=== PATIENT | female | born 1940 | race Caucasian/White ===

== ENCOUNTER 2018-02-24 23:10 | Emergency (ER) | payer MEDICARE, BC ==
--- NOTE | 2018-02-24 23:19 | EDM.PDOC ---
ED HPI GENERAL MEDICAL PROBLEM - General Chief Complaint: Cardiovascular Problem Stated Complaint: BURNING PAIN Time Seen by Provider: 02/24/18 23:14 Source of Information: Reports: Patient History Limitations: Reports: No Limitations - History of Present Illness INITIAL COMMENTS - FREE TEXT/NARRATIVE: This patient is a 77 year old female that presents to the ER. Patient reports that at about noon today she had burning in her chest that radiated to her left shoulder, left jaw, and back left. Patient reports the pain was about a 5/10. She reports it went away, then at supper time about 6pm, she had the same burning pain and locations. She reports the pain was a 5/10. She reports then the pain worsened and was an 8/10. She reports at that time shortly of after supper she took a tums. She reports the pain decreased down to a 4/10. Currently , her pain in in the ER is a 4/10. The patient reports she has a history of a hernia and has several GI issues with reflux. She reports the burning sensation feels like reflux, but she has not had this bad before, and she has not had in the shoulder or jaw area. Patient deneis arteaga, dizziness, n, v, d, f, neck pain, neck stiffness, shortness of breath, abd pain, urinary/bowel changes, rashes. Onset: Today Onset Date: 02/24/18 Onset Time: 12:00 Duration: Hour(s): (11) Location: Reports: Face, Chest, Upper Extremity, Left Quality: Reports: Burning Severity: Moderate Improves with: Reports: None Worsens with: Reports: Other (drinking water made it worse) Associated Symptoms: Reports: Chest Pain. Denies: Confusion, Cough, cough w sputum, Diaphoresis, Fever/Chills, Headaches, Loss of Appetite, Malaise, Nausea/ Vomiting, Rash, Seizure, Shortness of Breath, Syncope, Weakness Back Pain Score (Numeric/FACES): 4 - Related Data Allergies Allergy/AdvReac Type Severity Reaction Status Date / Time ciprofloxacin [From Cipro] Allergy Nausea and Verified 02/24/18 23:19 Vomiting codeine Allergy Nausea and Verified 02/24/18 23:19 Vomiting Penicillins Allergy Cannot Verified 02/24/18 23:19 Remember procaine [From Novocain] Allergy Weakness Verified 02/24/18 23:19 Home Meds: Home Meds Bisoprolol Fumarate/HCTZ [Ziac 5-6.25 MG] 1 tab PO DAILY 02/24/18 [History] Cholecalciferol (Vitamin D3) [Vitamin D3] 10,000 unit PO BEDTIME 02/24/18 [ History] Docusate Sodium [Colace] 100 mg PO DAILY 02/24/18 [History] Losartan [Cozaar] 25 mg PO BEDTIME 02/24/18 [History] Lutein [Natural Lutein] 20 mg PO BEDTIME 02/24/18 [History] diphenhydrAMINE HCl [Sleep Aid] 25 mg PO BEDTIME 02/24/18 [History] ED ROS GENERAL - Review of Systems Review Of Systems: See Below Constitutional: Reports: No Symptoms HEENT: Reports: No Symptoms Respiratory: Reports: No Symptoms Cardiovascular: Reports: Chest Pain (with radiation to the left shoulder and left jaw. ) Endocrine: Reports: No Symptoms GI/Abdominal: Reports: No Symptoms : Reports: No Symptoms Musculoskeletal: Reports: No Symptoms Skin: Reports: No Symptoms Neurological: Reports: No Symptoms Psychiatric: Reports: No Symptoms Hematologic/Lymphatic: Reports: No Symptoms Immunologic: Reports: No Symptoms ED EXAM, GENERAL - Physical Exam Exam: See Below Exam Limited By: No Limitations General Appearance: Alert, WD/WN, No Apparent Distress Eye Exam: Bilateral Eye: Normal Inspection, PERRL Ears: Normal External Exam, Normal Canal, Hearing Grossly Normal, Normal TMs Ear Exam: Bilateral Ear: Auricle Normal, Canal Normal, TM normal Nose: Normal Inspection, Normal Mucosa, No Blood Throat/Mouth: Normal Inspection, Normal Lips, Normal Teeth, Normal Gums, Normal Oropharynx, Normal Voice, No Airway Compromise Head: Atraumatic, Normocephalic Neck: Normal Inspection, Supple, Non-Tender, Full Range of Motion Respiratory/Chest: No Respiratory Distress, Lungs Clear, Normal Breath Sounds, No Accessory Muscle Use, Chest Non-Tender Cardiovascular: Normal Peripheral Pulses, Regular Rate, Rhythm, No Edema, No Gallop, No JVD, No Murmur, No Rub Peripheral Pulses: 2+: Radial (L), Radial (R), Posterior Tibial (L), Posterior Tibial (R) GI/Abdominal: Normal Bowel Sounds, Soft, Non-Tender, No Organomegaly, No Distention, No Abnormal Bruit, No Mass, Pelvis Stable, Hernia (Female) Exam: Deferred Rectal (Female) Exam: Deferred Back Exam: Normal Inspection, Full Range of Motion. No: CVA Tenderness (L), CVA Tenderness (R), Decreased Range of Motion, Muscle Spasm, Paraspinal Tenderness, Vertebral Tenderness Extremities: Normal Inspection, Normal Range of Motion, Non-Tender, No Pedal Edema, Normal Capillary Refill Neurological: Alert, Oriented, Normal Cognition, Normal Gait, No Motor/Sensory Deficits Psychiatric: Normal Affect, Normal Mood Skin Exam: Warm, Dry, Intact, Normal Color, No Rash Lymphatic: No Adenopathy EKG INTERPRETATION EKG Date: 02/24/18 Time: 23:10 Rhythm: NSR Rate (Beats/Min): 82 [place]: Normal P-Wave: Present QRS: Normal ST-T: Normal QT: Normal Comparison: NA - No Prior EKG Course - Vital Signs Last Recorded V/S: Last Vital Signs Temp 97.9 F 02/24/18 23:12 Pulse 87 02/24/18 23:12 Resp 18 02/24/18 23:12 BP 159/89 H 02/24/18 23:12 Pulse Ox 94 L 02/24/18 23:12 - Orders/Labs/Meds Orders: Active Orders 24 hr Category Date Time Status Cardiac Monitoring [RC] . DIRECTED Care 02/24/18 23:15 Active EKG Documentation Completion [RC] STAT Care 02/24/18 23:14 Active Chest 2V [CR] Stat Exams 02/24/18 23:14 Taken Labs: Laboratory Tests 02/24/18 02/24/18 Range/Units 23:39 23:39 WBC 9.4 (5.0-10.0) 10^3/uL RBC 4.45 (4.00-5.50) 10^6/uL Hgb 13.0 (12.0-16.0) g/dL Hct 41.1 (37.0-47.0) % MCV 92.4 (82.0-94.0) fL MCH 29.2 (27.0-32.0) pg MCHC 31.6 L (33.0-38.0) g/dL RDW Coeff of Vangie 13.1 (11.0-15.0) % Plt Count 283 (150-400) 10^3/uL Neut % (Auto) 44.4 (35-85) % Lymph % (Auto) 47.0 (10-55) % Citrus % (Auto) 7.4 (0-16) % Eos % (Auto) 1.0 (0-5) % Baso % (Auto) 0.2 (0-3) % Neut # (Auto) 4.17 (1.80-7.00) 10^3/uL Lymph # (Auto) 4.40 (1.00-4.80) 10^3/uL Citrus # (Auto) 0.69 (0.00-0.80) 10^3/uL Eos # (Auto) 0.09 (0.00-0.45) 10^3/uL Baso # (Auto) 0.02 10^3/uL Sodium 143 (136-145) mEq/L Potassium 3.8 (3.5-5.0) mEq/L Chloride 103 (98-106) mEq/L Carbon Dioxide 33 H (21-32) mmol/L BUN 31 H (7-18) mg/dL Creatinine 1.0 (0.6-1.0) mg/dL Est Cr Clr Drug Dosing 41.05 mL/min Estimated GFR (MDRD) 53 L (>=60) mL/min Glucose 113 H (75-99) mg/dL Calcium 10.1 (8.4-10.1) mg/dL Total Bilirubin 0.4 (0.0-1.0) mg/dL AST 18 (15-37) U/L ALT 18 (12-78) U/L Alkaline Phosphatase 116 (46-116) U/L Creatine Kinase 24 (21-215) U/L Troponin I < 0.017 (0.00-0.06) ng/mL NT-Pro-B Natriuret Pep 102 (0-1000) pg/mL Total Protein 7.7 (6.4-8.2) g/dL Albumin 3.9 (3.4-5.0) g/dL Meds: Medications Discontinued Medications Generic Name Dose Route Start Last Admin Trade Name Freq PRN Reason Stop Dose Admin Al Hydroxide/Mg Hydroxide 30 0 ml 02/25/18 00:08 02/25/18 00:14 ml/ Lidocaine HCl 15 ml PO 02/25/18 00:09 30 ml ONETIME ONE Administration Famotidine 20 mg 02/24/18 23:54 Pepcid IVPUSH 02/24/18 23:55 ONETIME ONE - Radiology Interpretation Free Text/Narrative:: CXR: Large Hiatal hernia, seen on previous CXR. No infiltrates. No cardiomegaly. - Re-Assessments/Exams Free Text/Narrative Re-Assessment/Exam: 02/25/18 01:16 Patient reports the GI [place] completely resolved her burning pain. She reports she is ready to go home now. Departure - Departure Time of Disposition: 00:33 Disposition: Home, Self-Care 01 Condition: Fair Clinical Impression: Hernia, hiatal Gastroesophageal reflux disease Qualifiers: Esophagitis presence: without esophagitis Qualified Code(s): K21.9 - Gastro- esophageal reflux disease without esophagitis Instructions: Food Choices for Gastroesophageal Reflux Disease, Adult, Gastroesophageal Reflux Disease, Adult Referrals: Provider,Unknown [Primary Care Provider] - Forms: ED Department Discharge Additional Instructions: Followup with your primary care provider Return to the ER for worsening of condition or an emergent concerns Avoid acid, greasy, fatty, fast foods Pantoprazole 40mg 1 pill once a day #30 no refill - My Orders Last 24 Hours: My Active Orders 02/24/18 23:14 EKG Documentation Completion [RC] STAT Chest 2V [CR] Stat 02/24/18 23:15 Cardiac Monitoring [RC] . DIRECTED - Assessment/Plan Last 24 Hours: My Active Orders 02/24/18 23:14 EKG Documentation Completion [RC] STAT Chest 2V [CR] Stat 02/24/18 23:15 Cardiac Monitoring [RC] . DIRECTED Plan: PLEASE SEE RN NOTE FOR PFSH.
[2018-02-24 23:58] LABS: CHLORIDE,CL 103 mEq/L (98-106); SODIUM,NA 143 mEq/L (136-145)
[2018-02-25] MEDS: Alum Hydrox/Mag Hydrox/Simeth 30 ML, Lidocaine 2% 15 ML PO ONE ×2 (00:14)
[2018-02-25] MEDS: Famotidine 20 MG/2 ML SDV IVPUSH ONE (01:25)
== END 2018-02-25 01:16 | disposition home or self-care (01) ==
LOC: CC.ED 23:10
DX: K44.9 Diaphragmatic hernia without obstruction or gangrene (principal); K21.9 Gastro-esophageal reflux disease without esophagitis; Z88.1 Allergy status to other antibiotic agents; Z88.0 Allergy status to penicillin; Z79.899 Other long term (current) drug therapy
CPT/HCPCS: 36415; 71046; 80053; 82550; 83880; 84484; 85025; 99285; A9270; 99284

== ENCOUNTER 2018-12-11 14:09 | Emergency (ER) | payer MEDICARE, BC ==
[2018-12-11] MEDS ORDERED: Ibuprofen 200 MG Tab PO ONE (14:47)
[2018-12-11] MEDS ORDERED: Sodium Chloride 0.9% 1,000 ML IV SCH (15:00)
--- NOTE | 2018-12-11 15:05 | EDM.PDOC ---
ED HPI GENERAL MEDICAL PROBLEM - General Chief Complaint: Genitourinary Problem Stated Complaint: TEMP Time Seen by Provider: 12/11/18 14:45 Source of Information: Reports: Family History Limitations: Reports: Altered Mental Status - History of Present Illness INITIAL COMMENTS - FREE TEXT/NARRATIVE: and daughter brought pt in for elevated fever and decrease in response. Noted that temp was 103 at home. Tylenol was given at 0800 this AM. She began to get sick Sunday night into Sunday AM. Sunday they took her to the ER in [place] and was told she had a UTI and was given IV fluids and IV antibiotics. WAS sent home on antibiotics which she did get today and took her dose this AM> She became febrile up to 103 at home and less responsive so was brought into the ER. She was having some lower abdominal pain. No diarrhea or constipation. Did have bottle of gatorade and water to drink this AM. Has been incontinent which is unusual for her. This morning she did need assistance to get up. Not able to get up with out assistance. Onset: Gradual Location: Reports: Abdomen Treatments [employer] COMMUNICATIONS: Reports: Acetaminophen Headache Pain Score (Numeric/FACES): 4 - Related Data Allergies Allergy/AdvReac Type Severity Reaction Status Date / Time ciprofloxacin [From Cipro] Allergy Nausea and Verified 12/11/18 14:25 Vomiting codeine Allergy Nausea and Verified 12/11/18 14:25 Vomiting Penicillins Allergy Cannot Verified 12/11/18 14:25 Remember procaine [From Novocain] Allergy Weakness Verified 12/11/18 14:25 Home Meds: Home Meds Bisoprolol Fumarate/HCTZ [Ziac 5-6.25 MG] 1 tab PO BEDTIME 02/24/18 [History] Cholecalciferol (Vitamin D3) [Vitamin D3] 10,000 unit PO BEDTIME 02/24/18 [ History] Docusate Sodium [Colace] 100 mg PO DAILY 02/24/18 [History] Losartan [Cozaar] 50 mg PO BEDTIME 02/24/18 [History] Lutein [Natural Lutein] 20 mg PO BEDTIME 02/24/18 [History] diphenhydrAMINE HCl [Sleep Aid] 25 mg PO BEDTIME 02/24/18 [History] Cefdinir 300 mg PO DAILY 12/11/18 [History] Ubidecarenone [Co Q-10] 100 mg PO DAILY 12/11/18 [History] Past Medical History HEENT History: Reports: Cataract, Macular Degeneration Cardiovascular History: Reports: High Cholesterol, Hypertension, Other (See Below) Other Cardiovascular History: leaky valve Gastrointestinal History: Reports: Chronic Constipation, Diverticulosis, GERD, Hemorrhoids, Hiatal Hernia Genitourinary History: Reports: Renal Calculus, Urinary Incontinence [employer] History: Reports: Musculoskeletal History: Reports: Arthritis, Back Pain, Chronic Neurological History: Reports: Migraines - Past Surgical History HEENT Surgical History: Reports: Tonsillectomy GI Surgical History: Reports: Colonoscopy, EGD, Other (See Below) Other GI Surgeries/Procedures: rectal prolapse surgery Female Surgical History: Reports: Lithotripsy/ESWL Neurological Surgical History: Reports: None Musculoskeletal Surgical History: Reports: None Social & Family History - Family History Family Medical History: Noncontributory - Tobacco Use Smoking Status *Q: Never Smoker - Caffeine Use Caffeine Use: Reports: Coffee - Recreational Drug Use Recreational Drug Use: No - Living Situation & Occupation Living situation: Reports: , with Spouse Occupation: Retired ED ROS GENERAL - Review of Systems Review Of Systems: See Below Constitutional: Denies: Fever, Chills HEENT: Reports: No Symptoms Respiratory: Reports: Other (O2 sat was low when she came in and Oxygen was applied to improve it.) Cardiovascular: Reports: No Symptoms GI/Abdominal: Reports: No Symptoms Skin: Reports: No Symptoms Psychiatric: Reports: Confusion, Other (lethargic) ED EXAM, RENAL/ - Physical Exam Exam: See Below Exam Limited By: Altered Mental Status General Appearance: Lethargic, Obtunded, Mild Distress Ears: Normal External Exam, Normal Canal Nose: Normal Inspection Throat/Mouth: Normal Inspection, Normal Oropharynx Head: Atraumatic, Normocephalic Neck: Normal Inspection, Supple, Non-Tender Respiratory/Chest: No Respiratory Distress, Lungs Clear, Normal Breath Sounds Cardiovascular: Regular Rate, Rhythm, No Edema GI/Abdominal: Normal Bowel Sounds, Soft, Non-Tender, No Organomegaly Extremities: Normal Inspection, Slow Capillary Refill Neurological: Alert Skin Exam: Warm, Dry, Intact Course - Vital Signs Last Recorded V/S: Last Vital Signs Temp 104.8 F H 12/11/18 16:25 Pulse 110 H 12/11/18 16:25 Resp 20 12/11/18 16:25 BP 132/53 L 12/11/18 16:25 Pulse Ox 95 12/11/18 16:25 - Orders/Labs/Meds Labs: Laboratory Tests 12/11/18 12/11/18 12/11/18 Range/Units 14:51 14:55 14:55 WBC 8.1 (5.0-10.0) 10^3/uL RBC 4.15 (4.00-5.50) 10^6/uL Hgb 12.2 (12.0-16.0) g/dL Hct 37.6 (37.0-47.0) % MCV 90.6 (82.0-94.0) fL MCH 29.4 (27.0-32.0) pg MCHC 32.4 L (33.0-38.0) g/dL RDW Coeff of Vangie 13.7 (11.0-15.0) % Plt Count 145 L (150-400) 10^3/uL Add Manual Diff Yes Neutrophils % (Manual) 82 (35-85) % Band Neutrophils % 14 H (0-5) % Lymphocytes % (Manual) 3 L (21-55) % Monocytes % (Manual) 1 L (2-12) % Sodium 132 L (136-145) mEq/L Potassium 3.5 (3.5-5.0) mEq/L Chloride 94 L (98-106) mEq/L Carbon Dioxide 24 (21-32) mmol/L BUN 34 H (7-18) mg/dL Creatinine 2.1 H D (0.6-1.0) mg/dL Est Cr Clr Drug Dosing 18.45 mL/min Estimated GFR (MDRD) 23 L (>=60) mL/min Glucose 184 H D (75-99) mg/dL Lactic Acid 2.0 (0.4-2.0) mmol/L Calcium 9.2 (8.4-10.1) mg/dL Total Bilirubin 0.8 (0.0-1.0) mg/dL AST 41 H (15-37) U/L ALT 37 (12-78) U/L Alkaline Phosphatase 128 H (46-116) U/L C-Reactive Protein 32.2 H (0.2-0.8) mg/dL Total Protein 6.7 (6.4-8.2) g/dL Albumin 3.0 L (3.4-5.0) g/dL Urine Color (YELLOW) Urine Appearance (CLEAR) Urine pH (4.5-8.0) Ur Specific [place] (1.003-1.020) Urine Protein (NEGATIVE) mg/dL Urine Glucose (UA) (NEGATIVE) mg/dL Urine Ketones (NEGATIVE) mg/dL Urine Occult Blood (NEGATIVE) Urine Nitrite (NEGATIVE) Urine Bilirubin (NEGATIVE) Urine Urobilinogen (0.2-1.0) EU/dL Ur Leukocyte Esterase (NEGATIVE) Urine RBC (0-5) /HPF Urine WBC (0-5) /HPF Ur Epithelial Cells (NOT SEEN) /HPF Amorphous Sediment (NOT SEEN) /HPF 12/11/18 Range/Units 16:02 WBC (5.0-10.0) 10^3/uL RBC (4.00-5.50) 10^6/uL Hgb (12.0-16.0) g/dL Hct (37.0-47.0) % MCV (82.0-94.0) fL MCH (27.0-32.0) pg MCHC (33.0-38.0) g/dL RDW Coeff of Vangie (11.0-15.0) % Plt Count (150-400) 10^3/uL Add Manual Diff Neutrophils % (Manual) (35-85) % Band Neutrophils % (0-5) % Lymphocytes % (Manual) (21-55) % Monocytes % (Manual) (2-12) % Sodium (136-145) mEq/L Potassium (3.5-5.0) mEq/L Chloride (98-106) mEq/L Carbon Dioxide (21-32) mmol/L BUN (7-18) mg/dL Creatinine (0.6-1.0) mg/dL Est Cr Clr Drug Dosing mL/min Estimated GFR (MDRD) (>=60) mL/min Glucose (75-99) mg/dL Lactic Acid (0.4-2.0) mmol/L Calcium (8.4-10.1) mg/dL Total Bilirubin (0.0-1.0) mg/dL AST (15-37) U/L ALT (12-78) U/L Alkaline Phosphatase (46-116) U/L C-Reactive Protein (0.2-0.8) mg/dL Total Protein (6.4-8.2) g/dL Albumin (3.4-5.0) g/dL Urine Color Yellow (YELLOW) Urine Appearance Slightly cloudy (CLEAR) Urine pH 5.0 (4.5-8.0) Ur Specific [place] 1.020 (1.003-1.020) Urine Protein 30 H (NEGATIVE) mg/dL Urine Glucose (UA) Negative (NEGATIVE) mg/dL Urine Ketones 40 H (NEGATIVE) mg/dL Urine Occult Blood Moderate H (NEGATIVE) Urine Nitrite Negative (NEGATIVE) Urine Bilirubin Negative (NEGATIVE) Urine Urobilinogen 0.2 (0.2-1.0) EU/dL Ur Leukocyte Esterase Trace H (NEGATIVE) Urine RBC 0-5 (0-5) /HPF Urine WBC 0-5 (0-5) /HPF Ur Epithelial Cells Few H (NOT SEEN) /HPF Amorphous Sediment Moderate H (NOT SEEN) /HPF Meds: Medications Discontinued Medications Generic Name Dose Route Start Last Admin Trade Name Michelle PRN Reason Stop Dose Admin Acetaminophen Confirm 12/11/18 17:00 12/11/18 17:00 Tylenol Administered 12/11/18 17:01 650 mg Dose Administration 650 mg .ROUTE .STK-MED ONE Sodium Chloride 1,000 mls @ 100 mls/hr 12/11/18 15:00 12/11/18 16:11 Normal Saline IV 999 mls/hr ASDIRECTED CATRACHITA Infusion Cefepime HCl 2 gm/ Sodium 50 mls @ 100 mls/hr 12/11/18 16:32 12/11/18 16:51 Chloride IV 12/11/18 17:01 100 mls/hr ONETIME ONE Administration Ibuprofen 600 mg 12/11/18 14:47 12/11/18 14:52 Motrin PO 12/11/18 14:48 600 mg ONETIME ONE Administration - Re-Assessments/Exams Free Text/Narrative Re-Assessment/Exam: 12/11/18 15:08 labs from the ER in [facility] reviewed. showed WBC at 13.7, lactic acid 1.4, BUN 19.5 , creatinine 1.5. 12/11/18 16:[address] Dhaliwal and he did evaluate the pt. BP is currently stable , slight tachycardia, Oxygen sats 85% when coming in and O2@ 2 l on sats 95%.Pt is very lethargic. Family wants pt to be a full code. 12/11/[address] Ward at [facility] and he did accept in transfer. Will be transferred per ALS ambulance. With IV fluid bolus running, IV antibiotics infusing. and monitoring. Discussed with family risks of not being transferred which would include becoming worse and possible . Benefits of transfer would include specialist and ICU availability of specialists. and daughter voice understanding and wish her to be transferred by ALS to [facility]. Departure - Departure Time of Disposition: 16:41 Disposition: DC/Tfer to [facility] 02 Condition: Critical Clinical Impression: Sepsis Qualifiers: Sepsis type: Streptococcus, unspecified Qualified Code(s): A40.9 - Streptococcal sepsis, unspecified - Discharge Information *PRESCRIPTION DRUG MONITORING PROGRAM REVIEWED*: Not Applicable *COPY OF PRESCRIPTION DRUG MONITORING REPORT IN PATIENT MARIFER: Not Applicable Referrals: PCP,Unknown [Primary Care Provider] - Forms: ED Department Discharge Additional Instructions: transfer to [facility] per ALS ground ambulance as noted above. - Problem List & Annotations (1) Sepsis SNOMED Code(s): 06342688 Code(s): A41.9 - SEPSIS, UNSPECIFIED ORGANISM Status: Acute Qualifiers: Sepsis type: Streptococcus, unspecified Qualified Code(s): A40.9 - Streptococcal sepsis, unspecified; A40 - Streptococcal sepsis - Problem List Review Problem List Initiated/Reviewed/Updated: Yes
[2018-12-11] MEDS ORDERED: Cefepime 2 GM in Sodium Chloride 0.9% 50 ML IV ONE (16:32)
[2018-12-11] MEDS ORDERED: Acetaminophen 650 MG Supp ONE (17:00)
== END 2018-12-11 17:05 ==
LOC: CC.ED 14:09 → CC.MS 15:20 → UNDOADMIN 15:20 → CC.ED 17:05
DX: A40.9 Streptococcal sepsis, unspecified (principal); E78.00 Pure hypercholesterolemia, unspecified; I10 Essential (primary) hypertension; Z88.1 Allergy status to other antibiotic agents; Z88.5 Allergy status to narcotic agent; Z88.0 Allergy status to penicillin; Z79.899 Other long term (current) drug therapy
CPT/HCPCS: 36415; 51702; 80053; 81001; 83605; 85025; 86140; 87040; 87077; 87804; 94761; 96361; 96374; 99285-25; A9270-GY; J0692; J7030; J7050

== ENCOUNTER 2018-12-18 10:57 | Inpatient (IN) | payer MEDICARE, BC ==
[2018-12-18] MEDS ORDERED: Ondansetron 4 MG Tab.DIS PO PRN (13:22)
[2018-12-18] MEDS ORDERED: Albuterol 8 GM Inhaler INH PRN (13:30)
[2018-12-18] MEDS: Cholecalciferol (Vitamin D3) 1,000 Unit Tab PO SCH (20:09)
[2018-12-18] MEDS: Multivitamin Tab PO SCH (20:09)
[2018-12-18] MEDS: Oxybutynin 5 MG Tab PO SCH (20:09)
[2018-12-19] MEDS: Fluconazole 100 MG Tab PO SCH (07:45)
[2018-12-19] MEDS: Oxybutynin 5 MG Tab PO SCH ×2 (07:46→19:38)
[2018-12-19] MEDS: Docusate Sodium 100 MG Cap PO SCH (07:47)
[2018-12-19] MEDS: Polyethylene Glycol 3350 Powder 17 GM Packet PO SCH (07:47)
[2018-12-19] MEDS ORDERED: Non-Formulary Medication 1 Each (Ubidecarenone [Co Q-10] 100 MG) PO SCH (08:00)
[2018-12-19] MEDS ORDERED: Non-Formulary Medication 1 Each (Fish Oil/Omega-3 Fatty Acids [Fish Oil 1,000 Mg] 1,000 MG PO SCH (08:00)
--- NOTE | 2018-12-19 08:55 | PCM.HP ---
H&P History of Present Illness - General Date of Service: 12/18/18 Admit Problem/Dx: Admission Diagnosis/Problem Admission Diagnosis/Problem UTI, Urinary tract infectious disease Source of Information: Patient, Old Records History Limitations: Reports: No Limitations - History of Present Illness Initial Comments - Free Text/Narative: Patient presented from [facility] for swing bed for strengthening due to UTI with sepsis. Patient had initially been hospitalized for UTI and treated with Rocephin. Discharged home but returned and transferred due to hypotension. She was started on Cefepime. At [facility], she underwent a CT scan for stone protocol which did show a hydroureter and a ureteral stone proximal to the right UVJ. Had a right side ureteral stent placed. Chest xray done there did show pleural effusions felt related to CHF so was started on Lasix. That has since been discontinued. Blood cultures were positive for yeast so has been on course of high dose Fluconazole. On arrival here, patient is feeling much better. States does feel very weak. Denies abdominal pain, nausea or vomiting. Does have mild burning with urination. Afebrile. Did have miralax and suppository at [facility] with good results yesterday. On 12-16-2018, magnesium was low at 1.7 so was started on 500 mg BID for 4 doses. Duration of Symptoms: Reports: Week(s): Location: Reports: Abdomen Severity: Moderate Improves with: Reports: Medication Associated Symptoms: Reports: Loss of Appetite, Weakness. Denies: Confusion, Chest Pain, Cough, Nausea/Vomiting, Shortness of Breath Right Hip Pain Score (Numeric/FACES): 3 - Related Data Allergies/Adverse Reactions: Allergies Allergy/AdvReac Type Severity Reaction Status Date / Time ciprofloxacin [From Cipro] Allergy Nausea and Verified 12/18/18 11:50 Vomiting codeine Allergy Nausea and Verified 12/18/18 11:50 Vomiting Penicillins Allergy Cannot Verified 12/18/18 11:50 Remember procaine [From Novocain] Allergy Weakness Verified 12/18/18 11:50 Home Medications: Home Meds Bisoprolol Fumarate/HCTZ [Ziac 5-6.25 MG] 1 tab PO BEDTIME 02/24/18 [History] Cholecalciferol (Vitamin D3) [Vitamin D3] 5,000 unit PO BEDTIME 02/24/18 [ History] Docusate Sodium [Colace] 100 mg PO DAILY 02/24/18 [History] Lutein [Natural Lutein] 10 mg PO BEDTIME 02/24/18 [History] diphenhydrAMINE HCl [Sleep Aid] 25 mg PO BEDTIME PRN 02/24/18 [History] Ubidecarenone [Co Q-10] 100 mg PO DAILY 12/11/18 [History] Albuterol [Ventolin HFA] 1 inh INH Q4H PRN 12/18/18 [History] Fish Oil/Evergreen-3 Fatty Acids [Fish Oil 1,000 MG] 1,000 mg PO DAILY 12/18/18 [ History] Polyethylene Glycol 3350 [Miralax] 17 gm PO DAILY 12/18/18 [History] Past Medical History HEENT History: Reports: Cataract, Macular Degeneration Cardiovascular History: Reports: High Cholesterol, Hypertension, Other (See Below) Other Cardiovascular History: leaky valve Gastrointestinal History: Reports: Chronic Constipation, Diverticulosis, GERD, Hemorrhoids, Hiatal Hernia Genitourinary History: Reports: Hydronephrosis, Renal Calculus, Urinary Incontinence 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: Musculoskeletal History: Reports: Arthritis, Back Pain, Chronic Neurological History: Reports: Migraines - Past Surgical History HEENT Surgical History: Reports: Tonsillectomy GI Surgical History: Reports: Colonoscopy, EGD, Other (See Below) Other GI Surgeries/Procedures: rectal prolapse surgery Female Surgical History: Reports: Cystoscopy, Lithotripsy/ESWL, Ureteral Stent Neurological Surgical History: Reports: None Musculoskeletal Surgical History: Reports: None Social & Family History - Family History Family Medical History: Noncontributory - Tobacco Use Smoking Status *Q: Never Smoker - Caffeine Use Caffeine Use: Reports: Coffee - Recreational Drug Use Recreational Drug Use: No - Living Situation & Occupation Living situation: Reports: , with Spouse Occupation: Retired H&P Review of Systems - Review of Systems: Review Of Systems: See Below General: Reports: Malaise, Weakness, Fatigue. Denies: Fever, Chills HEENT: Denies: Ear Pain, Sinus Congestion, Sore Throat Pulmonary: Reports: Cough. Denies: Shortness of Breath, Sputum Cardiovascular: Reports: Edema. Denies: Chest Pain, Lightheadedness Gastrointestinal: Reports: Constipation (resolved yesterday with suppository), Decreased Appetite. Denies: Abdominal Pain, Nausea, Vomiting Genitourinary: Reports: Frequency, Burning Musculoskeletal: Reports: No Symptoms Skin: Reports: No Symptoms Psychiatric: Reports: No Symptoms Exam - Exam Exam: See Below - Vital Signs Vital Signs: Last Vital Signs Temp 98.0 F 12/19/18 07:56 Pulse 74 12/19/18 07:56 Resp 18 12/19/18 07:56 BP 140/58 L 12/19/18 07:56 Pulse Ox 95 12/19/18 07:56 Weight: 161 lb 8 oz - Exam General: Alert, Oriented, Cooperative HEENT: Conjunctiva Clear, Mucosa Moist & [place], Posterior Pharynx Clear Neck: Supple Lungs: Normal Respiratory Effort, Wheezing Cardiovascular: Regular Rate, Regular Rhythm, Systolic Murmur GI/Abdominal Exam: Normal Bowel Sounds, Soft, Non-Tender Extremities: Normal Inspection, Pedal Edema (1-2+ pitting edema in lower extremities) Skin: Warm, Dry Neuro Extensive - Mental Status: Alert, Oriented x3 - Problem List (1) UTI (urinary tract infection) SNOMED Code(s): 83029274 ICD Code: N39.0 - URINARY TRACT INFECTION, SITE NOT SPECIFIED Status: Acute Priority: High Current Visit: Yes Qualifiers: Urinary tract infection type: acute cystitis (2) Sepsis due to [place] SNOMED Code(s): 906404364 ICD Code: B37.7 - CANDIDAL SEPSIS Status: Acute Priority: High Current Visit: Yes Problem List Initiated/Reviewed/Updated: Yes Orders Last 24hrs: Active Orders 24 hr Category Date Time Status Patient Status [ADT] Routine ADT 12/18/18 13:25 Active Antiembolic Devices [RC] 1000,2200 Care 12/18/18 16:23 Active Oxygen Therapy [RC] .PRN Care 12/18/18 13:25 Active Up With Assistance [RC] .PRN Care 12/18/18 13:22 Active Vital Signs [RC] 0800,2000 Care 12/18/18 13:25 Active PT Evaluation and Treatment [CONS] Routine Cons 12/18/18 13:22 Active Regular Diet [DIET] Diet 12/18/18 Dinner Active BASIC METABOLIC PANEL,BMP [CHEM] AM Lab 12/20/18 05:11 Ordered C-REACTIVE PROTEIN [CHEM] AM Lab 12/20/18 05:11 Ordered CBC WITH AUTO DIFF [HEME] AM Lab 12/20/18 05:11 Ordered MAGNESIUM [CHEM] Routine Lab 12/20/18 05:11 Ordered Acetaminophen [Tylenol] Med 12/18/18 13:22 Active 650 mg PO Q4H PRN Albuterol [Ventolin HFA] Med 12/18/18 13:30 Active 0 gm INH Q4H PRN Bisoprolol/Hydrochlorothiazide [Ziac 5-6.25 MG] Med 12/18/18 20:00 Active 1 tab PO BEDTIME Cholecalciferol (Vitamin D3) [Vitamin D3] Med 12/18/18 20:00 Active 5,000 units PO BEDTIME Docusate Sodium [Colace] Med 12/19/18 08:00 Active 100 mg PO DAILY Enoxaparin [Lovenox] Med 12/19/18 08:15 Ordered 30 mg SUBCUT Q24H Fluconazole [Diflucan] Med 12/19/18 08:00 Active 800 mg PO DAILY Magnesium Oxide Med 12/18/18 17:30 Active 500 mg PO BIDM Multivitamins [Tab-A-Tylor] Med 12/18/18 20:00 Active 1 tab PO BEDTIME Ondansetron [Zofran ODT] Med 12/18/18 13:22 Active 4 mg PO Q4H PRN Oxybutynin Med 12/18/18 20:00 Active 5 mg PO BID Polyethylene Glycol 3350 [MiraLAX] Med 12/19/18 08:00 Active 17 gm PO DAILY LEILA Hose [Antiembolic Hose] [OM.PC] Routine Oth 12/18/18 16:23 Ordered Resuscitation Status Routine Resus Stat 12/18/18 13:22 Ordered Medication Orders Acetaminophen (Tylenol) 650 mg PO Q4H PRN PRN Reason: Pain (Mild 1-3)/fever Albuterol (Ventolin Hfa) 0 gm INH Q4H PRN PRN Reason: Shortness of Breath Bisoprolol Fumarate/HCTZ (Ziac 5-6.25 Mg) 1 tab PO BEDTIME [facility] Last Admin: 12/18/18 20:10 Dose: 1 tab Cholecalciferol (Vitamin D3) 5,000 units PO BEDTIME [facility] Last Admin: 12/18/18 20:09 Dose: 5,000 units Docusate Sodium (Colace) 100 mg PO DAILY [facility] Last Admin: 12/19/18 07:47 Dose: 100 mg Enoxaparin Sodium (Lovenox) 30 mg SUBCUT Q24H [facility] Fluconazole (Diflucan) 800 mg PO DAILY [facility] Last Admin: 12/19/18 07:45 Dose: 800 mg Magnesium Oxide (Magnesium Oxide) 500 mg PO BIDM [facility] Stop: 12/19/18 18:00 Last Admin: 12/19/18 07:40 Dose: 500 mg Admin: 12/18/18 18:29 Dose: 500 mg Multivitamins/Minerals/Vitamin C (Tab-A-Tylor) 1 tab PO BEDTIME [facility] Last Admin: 12/18/18 20:09 Dose: 1 tab Ondansetron HCl (Zofran Odt) 4 mg PO Q4H PRN PRN Reason: nausea, able to take PO Oxybutynin Chloride (Oxybutynin) 5 mg PO BID [facility] Last Admin: 12/19/18 07:46 Dose: 5 mg Admin: 12/18/18 20:09 Dose: 5 mg Polyethylene Glycol (Miralax) 17 gm PO DAILY [facility] Last Admin: 12/19/18 07:47 Dose: Not Given Assessment/Plan Comment:: Acute Cystitis with sepsis related to elver Plan: Will continue with Fluconazole. PT for strengthening. Lovenox SQ for DVT prophylaxis. Recheck labs in am.
[2018-12-19] MEDS: Enoxaparin 40 MG/0.4 ML Syringe SUBCUT SCH (08:58)
[2018-12-19] MEDS: Acetaminophen 325 MG Tab PO PRN (16:51)
[2018-12-19] MEDS: Multivitamin Tab PO SCH (19:38)
[2018-12-19] MEDS: Cholecalciferol (Vitamin D3) 1,000 Unit Tab PO SCH (19:38)
[2018-12-20 07:31] LABS: CHLORIDE,CL 104 mEq/L (98-106); SODIUM,NA 141 mEq/L (136-145)
[2018-12-20] MEDS: Enoxaparin 40 MG/0.4 ML Syringe SUBCUT SCH (07:46)
[2018-12-20] MEDS: Fluconazole 100 MG Tab PO SCH (07:47)
[2018-12-20] MEDS: Docusate Sodium 100 MG Cap PO SCH (07:47)
[2018-12-20] MEDS: Polyethylene Glycol 3350 Powder 17 GM Packet PO SCH (07:48)
[2018-12-20] MEDS: Oxybutynin 5 MG Tab PO SCH ×2 (07:48→19:26)
[2018-12-20 08:24] LABS: CHLORIDE,CL 104 mEq/L (98-106); SODIUM,NA 141 mEq/L (136-145)
[2018-12-20] MEDS: Cholecalciferol (Vitamin D3) 1,000 Unit Tab PO SCH (19:26)
[2018-12-20] MEDS: Multivitamin Tab PO SCH (19:26)
[2018-12-21] MEDS: Oxybutynin 5 MG Tab PO SCH ×2 (07:20→21:20)
[2018-12-21] MEDS: Polyethylene Glycol 3350 Powder 17 GM Packet PO SCH (07:20)
[2018-12-21] MEDS: Enoxaparin 40 MG/0.4 ML Syringe SUBCUT SCH (07:20)
[2018-12-21] MEDS: Docusate Sodium 100 MG Cap PO SCH (07:20)
[2018-12-21] MEDS: Fluconazole 100 MG Tab PO SCH (07:21)
[2018-12-21] MEDS: Acetaminophen 325 MG Tab PO PRN (18:27)
[2018-12-21] MEDS: Multivitamin Tab PO SCH (21:20)
[2018-12-21] MEDS: Cholecalciferol (Vitamin D3) 1,000 Unit Tab PO SCH (21:20)
[2018-12-22] MEDS: Acetaminophen 325 MG Tab PO PRN ×3 (01:51→22:14)
[2018-12-22] MEDS: Oxybutynin 5 MG Tab PO SCH ×2 (07:31→19:52)
[2018-12-22] MEDS: Fluconazole 100 MG Tab PO SCH (07:31)
[2018-12-22] MEDS: Docusate Sodium 100 MG Cap PO SCH (07:31)
[2018-12-22] MEDS: Polyethylene Glycol 3350 Powder 17 GM Packet PO SCH (07:32)
[2018-12-22] MEDS: Enoxaparin 40 MG/0.4 ML Syringe SUBCUT SCH (07:32)
[2018-12-22] MEDS: Cholecalciferol (Vitamin D3) 1,000 Unit Tab PO SCH (19:52)
[2018-12-22] MEDS: Multivitamin Tab PO SCH (19:52)
[2018-12-23 07:27] LABS: CHLORIDE,CL 103 mEq/L (98-106); SODIUM,NA 141 mEq/L (136-145)
[2018-12-23] MEDS: Enoxaparin 40 MG/0.4 ML Syringe SUBCUT SCH (07:45)
[2018-12-23] MEDS: Oxybutynin 5 MG Tab PO SCH ×2 (07:45→19:33)
[2018-12-23] MEDS: Fluconazole 100 MG Tab PO SCH (07:45)
[2018-12-23] MEDS: Polyethylene Glycol 3350 Powder 17 GM Packet PO SCH (07:45)
[2018-12-23] MEDS: Docusate Sodium 100 MG Cap PO SCH (07:45)
[2018-12-23] MEDS: Cholecalciferol (Vitamin D3) 1,000 Unit Tab PO SCH (19:33)
[2018-12-23] MEDS: Multivitamin Tab PO SCH (19:33)
[2018-12-23] MEDS: Acetaminophen 325 MG Tab PO PRN (22:32)
[2018-12-24] MEDS: Oxybutynin 5 MG Tab PO SCH ×2 (07:30→19:23)
[2018-12-24] MEDS: Docusate Sodium 100 MG Cap PO SCH (07:30)
[2018-12-24] MEDS: Fluconazole 100 MG Tab PO SCH (07:31)
[2018-12-24] MEDS: Polyethylene Glycol 3350 Powder 17 GM Packet PO SCH ×2 (07:31→19:34)
[2018-12-24] MEDS: Enoxaparin 40 MG/0.4 ML Syringe SUBCUT SCH (07:31)
[2018-12-24] MEDS: Cholecalciferol (Vitamin D3) 1,000 Unit Tab PO SCH (19:23)
[2018-12-24] MEDS: Multivitamin Tab PO SCH (19:23)
[2018-12-24] MEDS: Acetaminophen 325 MG Tab PO PRN (19:42)
[2018-12-25] MEDS: Oxybutynin 5 MG Tab PO SCH ×2 (07:29→19:21)
[2018-12-25] MEDS: Docusate Sodium 100 MG Cap PO SCH (07:29)
[2018-12-25] MEDS: Fluconazole 100 MG Tab PO SCH (07:29)
[2018-12-25] MEDS: Enoxaparin 40 MG/0.4 ML Syringe SUBCUT SCH (07:30)
[2018-12-25] MEDS: Cholecalciferol (Vitamin D3) 1,000 Unit Tab PO SCH (19:21)
[2018-12-25] MEDS: Polyethylene Glycol 3350 Powder 17 GM Packet PO SCH (19:21)
[2018-12-25] MEDS: Multivitamin Tab PO SCH (19:21)
[2018-12-25] MEDS: Acetaminophen 325 MG Tab PO PRN (21:50)
[2018-12-26] MEDS: Docusate Sodium 100 MG Cap PO SCH (07:18)
[2018-12-26] MEDS: Oxybutynin 5 MG Tab PO SCH ×2 (07:18→20:09)
[2018-12-26] MEDS: Fluconazole 100 MG Tab PO SCH (07:18)
[2018-12-26] MEDS: Enoxaparin 40 MG/0.4 ML Syringe SUBCUT SCH (07:19)
[2018-12-26] MEDS: Polyethylene Glycol 3350 Powder 17 GM Packet PO SCH (20:08)
[2018-12-26] MEDS: Multivitamin Tab PO SCH (20:09)
[2018-12-26] MEDS: Cholecalciferol (Vitamin D3) 1,000 Unit Tab PO SCH (20:09)
[2018-12-27] MEDS: Fluconazole 100 MG Tab PO SCH (07:44)
[2018-12-27] MEDS: Docusate Sodium 100 MG Cap PO SCH (07:44)
[2018-12-27] MEDS: Enoxaparin 40 MG/0.4 ML Syringe SUBCUT SCH (07:45)
[2018-12-27] MEDS: Oxybutynin 5 MG Tab PO SCH (07:45)
--- NOTE | 2018-12-27 12:01 | PCM.DCSUM1 ---
Discharge Summary - Hospital Course Free Text/Narrative:: Patient presented from [facility] for swing bed for strengthening due to UTI with sepsis. Patient had initially been hospitalized for UTI and treated with Rocephin. Discharged home but returned and transferred due to hypotension. She was started on Cefepime. At [facility], she underwent a CT scan for stone protocol which did show a hydroureter and a ureteral stone proximal to the right UVJ. Had a right side ureteral stent placed. Chest xray done there did show pleural effusions felt related to CHF so was started on Lasix. That has since been discontinued. Blood cultures were positive for yeast so has been on course of high dose Fluconazole. On arrival here, patient is feeling much better. States does feel very weak. Denies abdominal pain, nausea or vomiting. Does have mild burning with urination. Afebrile. Did have miralax and suppository at [facility] with good results yesterday. On 12-16-2018, magnesium was low at 1.7 so was started on 500 mg BID for 4 doses. Diagnosis: Stroke: No Modified Emmet Scale: No Symptoms at All Modified Emmet Scale Score: 0 - Discharge Data Discharge Date: 12/27/18 Discharge Disposition: Home, W Home Health Agency Condition: Good - Discharge Diagnosis/Problem(s) (1) UTI (urinary tract infection) SNOMED Code(s): 45139271 ICD Code: N39.0 - URINARY TRACT INFECTION, SITE NOT SPECIFIED Status: Acute Priority: High Qualifiers: Urinary tract infection type: acute cystitis (2) Sepsis due to [place] SNOMED Code(s): 275419603 ICD Code: B37.7 - CANDIDAL SEPSIS Status: Acute Priority: High - Patient Summary/Data Complications: none Consults: Consultations 12/18/18 13:22 PT Evaluation and Treatment [CONS] Routine Hospital Course: Patient is doing well. Is up and ambulating now with walker and only standby assist, has gained adequate strength. Doing own cares. Has had low grade fevers at times. Labs repeated x2 and have remained stable. Urine and culture both repeated without concern. Does continue yet on fluconazole for another 4 days. Plans to see Rose Farmer on hospital discharge today to discuss the changes, blood pressure medications. Will discharge home on home health. Nursing to monitor blood pressure, temp and assist with ADLs if needed. PT and OT for strengthening. Patient unable to drive due to remaining weakness related to sepsis. Dr. Dhaliwal to oversee plan of care. - Patient Instructions Diet: Usual Diet as Tolerated Activity: As Tolerated - Discharge Plan *PRESCRIPTION DRUG MONITORING PROGRAM REVIEWED*: No *COPY OF PRESCRIPTION DRUG MONITORING REPORT IN PATIENT MARIFER: No Prescriptions/Med Rec: Fluconazole [Diflucan] 800 mg PO DAILY #40 tablet Oxybutynin 5 mg PO BID #60 tablet Home Medications: Home Meds Bisoprolol Fumarate/HCTZ [Ziac 5-6.25 MG] 1 tab PO BEDTIME 02/24/18 [History] Cholecalciferol (Vitamin D3) [Vitamin D3] 5,000 unit PO BEDTIME 02/24/18 [ History] Docusate Sodium [Colace] 100 mg PO DAILY 02/24/18 [History] Lutein [Natural Lutein] 10 mg PO BEDTIME 02/24/18 [History] diphenhydrAMINE HCl [Sleep Aid] 25 mg PO BEDTIME PRN 02/24/18 [History] Ubidecarenone [Co Q-10] 100 mg PO DAILY 12/11/18 [History] Albuterol [Ventolin HFA] 1 inh INH Q4H PRN 12/18/18 [History] Fish Oil/[place]-3 Fatty Acids [Fish Oil 1,000 MG] 1,000 mg PO DAILY 12/18/18 [ History] Polyethylene Glycol 3350 [Miralax] 17 gm PO DAILY 12/18/18 [History] Fluconazole [Diflucan] 800 mg PO DAILY #40 tablet 12/27/18 [Rx] Oxybutynin 5 mg PO BID #60 tablet 12/27/18 [Rx] Patient Handouts: Sepsis, Adult, Urinary Tract Infection, Adult Referrals: Rose Farmer, EARLY [employer]ER [Primary Care Provider] - (Keep scheduled appointment with Daily Farmer today) - Discharge Summary/Plan Comment DC Time >30 min.: No - General Info Date of Service: 12/27/18 Admission Dx/Problem (Free Text: Admission Diagnosis/Problem Admission Diagnosis/Problem UTI, Urinary tract infectious disease Functional Status: Reports: Pain Controlled, Tolerating Diet, Ambulating - Review of Systems General: Reports: Weakness, Fatigue, Malaise. Denies: Fever HEENT: Reports: No Symptoms Pulmonary: Denies: Shortness of Breath, Cough Cardiovascular: Denies: Chest Pain, Edema, Lightheadedness Gastrointestinal: Denies: Abdominal Pain, Nausea, Vomiting Genitourinary: Reports: No Symptoms Musculoskeletal: Reports: No Symptoms Skin: Reports: No Symptoms Neurological: Reports: No Symptoms - Patient Data Vitals - Most Recent: Last Vital Signs Temp 98.8 F 12/27/18 08:00 Pulse 70 12/27/18 08:00 Resp 20 12/27/18 08:00 BP 147/65 H 12/27/18 08:00 Pulse Ox 93 L 12/27/18 08:00 Weight - Most Recent: 146 lb 8 oz MICHAEL Results - Last 24 hrs: Microbiology 12/26/18 10:41 Urine Culture - Preliminary Urine, Clean Catch Med Orders - Current: Current Medications Acetaminophen (Tylenol) 650 mg PO Q4H PRN PRN Reason: Pain (Mild 1-3)/fever Last Admin: 12/25/18 21:50 Dose: 650 mg Albuterol (Ventolin Hfa) 0 gm INH Q4H PRN PRN Reason: Shortness of Breath Bisoprolol Fumarate/HCTZ (Ziac 5-6.25 Mg) 1 tab PO BEDTIME [facility] Last Admin: 12/26/18 20:09 Dose: 1 tab Cholecalciferol (Vitamin D3) 5,000 units PO BEDTIME [facility] Last Admin: 12/26/18 20:09 Dose: 5,000 units Docusate Sodium (Colace) 100 mg PO DAILY [facility] Last Admin: 12/27/18 07:44 Dose: 100 mg Enoxaparin Sodium (Lovenox) 40 mg SUBCUT DAILY [facility] Last Admin: 12/27/18 07:45 Dose: 40 mg Fluconazole (Diflucan) 800 mg PO DAILY [facility] Last Admin: 12/27/18 07:44 Dose: 800 mg Multivitamins/Minerals/Vitamin C (Tab-A-Tylor) 1 tab PO BEDTIME [facility] Last Admin: 12/26/18 20:09 Dose: 1 tab Ondansetron HCl (Zofran Odt) 4 mg PO Q4H PRN PRN Reason: nausea, able to take PO Oxybutynin Chloride (Oxybutynin) 5 mg PO BID [facility] Last Admin: 12/27/18 07:45 Dose: 5 mg Polyethylene Glycol (Miralax) 17 gm PO BEDTIME [facility] Last Admin: 12/26/18 20:08 Dose: 17 gm Discontinued Medications Magnesium Oxide (Magnesium Oxide) 500 mg PO BIDM [facility] Stop: 12/19/18 18:00 Last Admin: 12/19/18 16:51 Dose: 500 mg Non-Formulary Medication (Fish Oil/[place]-3 Fatty Acids [Fish Oil 1,000 Mg]) 1, 000 mg PO DAILY [facility] Non-Formulary Medication (Ubidecarenone [Co Q-10]) 100 mg PO DAILY [facility] Polyethylene Glycol (Miralax) 17 gm PO DAILY [facility] Last Admin: 12/24/18 07:31 Dose: 17 gm - Exam General: Reports: Alert, Oriented HEENT: Reports: Mucous Membr. Moist/[place] Neck: Reports: Supple Lungs: Reports: Clear to Auscultation, Normal Respiratory Effort Cardiovascular: Reports: Regular Rate, Regular Rhythm GI/Abdominal Exam: Normal Bowel Sounds, Soft, Non-Tender Extremities: Normal Inspection, No Pedal Edema Skin: Reports: Warm, Dry Neurological: Reports: No New Focal Deficit
== END 2018-12-27 11:45 | disposition home health service (06) | DRG 872 ==
LOC: CC.MS 13:22 → UNDOADMIN 14:37
PROVIDERS: ADMIT Family Medicine; ATTEND Family Medicine
DX: B37.7 Candidal sepsis (principal); N30.00 Acute cystitis without hematuria; H26.9 Unspecified cataract; H35.30 Unspecified macular degeneration; E78.00 Pure hypercholesterolemia, unspecified; I10 Essential (primary) hypertension; K21.9 Gastro-esophageal reflux disease without esophagitis; K59.09 Other constipation; M19.91 Primary osteoarthritis, unspecified site; G43.909 Migraine, unspecified, not intractable, without status migrainosus; M54.9 Dorsalgia, unspecified; G89.29 Other chronic pain; Z88.0 Allergy status to penicillin; Z88.5 Allergy status to narcotic agent; Z88.8 Allergy status to other drugs, medicaments and biological substances; Z79.899 Other long term (current) drug therapy
CPT/HCPCS: 36415; 80048; 80053; 81001; 83735; 85025; 86140; 87086; 97110-GP; 97161-GP; 97530-GP; A9270-GY; J1650

== ENCOUNTER 2019-01-07 10:14 | Inpatient (IN) | payer MEDICARE, BC ==
[2019-01-28] MEDS ORDERED: Temazepam 15 MG Cap PO PRN (17:58)
--- NOTE | 2019-01-28 17:58 | PCM.HP ---
H&P History of Present Illness - General Date of Service: 01/28/19 Admit Problem/Dx: Weakness Source of Information: Patient History Limitations: Reports: No Limitations - History of Present Illness Initial Comments - Free Text/Narative: Lori is a pleasant 78 year old female who is admitted swing bed for generalized weakness and fatigue. She was originally seen in our ED 01/24/2019 and was unresponsive at that time. Was transferred to [facility] for encephalopathy. She had recently been hospitalized with parotitis and elver bacteremia and had urinary stent placed. Had stent removed 01/24/2019, prior to episode of unresponsiveness. Suspected that she had temporary translocation of bacteria with instrumentation for urinary stent removal causing mild SIRS picture with weakness. SIRS likely aggravated by long day of travel, heat exposure, and general deconditioning from recent medical illness and stress. All other workup for unresponsiveness negative. Patient denies any complaints upon admission except continues to feel weak. She is nearly at baseline though still generally weak requiring 1-2 person assist with transfers. She is admitted to swing bed for continued PT for strengthening. - Related Data Allergies/Adverse Reactions: Allergies Allergy/AdvReac Type Severity Reaction Status Date / Time ciprofloxacin [From Cipro] Allergy Nausea and Verified 01/24/19 23:33 Vomiting codeine Allergy Nausea and Verified 01/24/19 23:33 Vomiting Penicillins Allergy Cannot Verified 01/24/19 23:33 Remember procaine [From Novocain] Allergy Weakness Verified 01/24/19 23:33 Home Medications: Home Meds Cholecalciferol (Vitamin D3) [Vitamin D3] 5,000 unit PO BEDTIME 02/24/18 [ History] Docusate Sodium [Colace] 100 mg PO DAILY 02/24/18 [History] Ubidecarenone [Co Q-10] 100 mg PO DAILY 12/11/18 [History] Albuterol [Ventolin HFA] 1 inh INH Q4H PRN 12/18/18 [History] Fish Oil/[place]-3 Fatty Acids [Fish Oil 1,000 MG] 1,000 mg PO DAILY 12/18/18 [ History] Polyethylene Glycol 3350 [Miralax] 17 gm PO DAILY PRN 12/18/18 [History] Potassium Chloride 20 meq PO BID 01/07/19 [History] Aspirin [Tina Chewable] 81 mg PO DAILY 01/25/19 [History] Losartan [Cozaar] 50 mg PO DAILY 01/25/19 [History] Sennosides/Docusate Sodium [Sennosides-Docusate Sodium] 1 tab PO DAILY 01/25/19 [History] Cholecalciferol (Vitamin D3) [Vitamin D3] 5,000 unit PO DAILY 01/28/19 [History] Cyanocobalamin (Vitamin B-12) [Cyanocobalamin Injection] 1 ml IM Q30D 01/28/19 [ History] Past Medical History HEENT History: Reports: Cataract, Macular Degeneration Cardiovascular History: Reports: High Cholesterol, Hypertension, Other (See Below) Other Cardiovascular History: leaky valve Gastrointestinal History: Reports: Chronic Constipation, Diverticulosis, GERD, Hemorrhoids, Hiatal Hernia Genitourinary History: Reports: Hydronephrosis, Renal Calculus, Urinary Incontinence 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: Musculoskeletal History: Reports: Arthritis, Back Pain, Chronic Neurological History: Reports: Migraines - Past Surgical History HEENT Surgical History: Reports: Tonsillectomy GI Surgical History: Reports: Colonoscopy, EGD, Other (See Below) Other GI Surgeries/Procedures: rectal prolapse surgery Female Surgical History: Reports: Cystoscopy, Lithotripsy/ESWL, Ureteral Stent Neurological Surgical History: Reports: None Musculoskeletal Surgical History: Reports: None Social & Family History - Family History Family Medical History: Noncontributory - Tobacco Use Smoking Status *Q: Never Smoker Second Hand Smoke Exposure: No - Caffeine Use Caffeine Use: Reports: Coffee - Living Situation & Occupation Living situation: Reports: , with Spouse Occupation: Retired H&P Review of Systems - Review of Systems: Review Of Systems: ROS reveals no pertinent complaints other than HPI. General: Reports: Weakness, Fatigue. Denies: Fever, Malaise, Decreased Appetite HEENT: Reports: No Symptoms Pulmonary: Reports: No Symptoms Cardiovascular: Reports: No Symptoms Gastrointestinal: Reports: No Symptoms Genitourinary: Reports: No Symptoms Musculoskeletal: Reports: Back Pain, Joint Pain (hip pain) Skin: Reports: No Symptoms Psychiatric: Reports: No Symptoms Exam - Exam Exam: See Below - Vital Signs Weight: 137 lb - Exam Quality Assessment: DVT Prophylaxis General: Alert, Oriented, 4 Neck: Supple, Trachea Midline, 2 Lungs: Clear to Auscultation, Normal Respiratory Effort Cardiovascular: Regular Rate, Regular Rhythm GI/Abdominal Exam: Normal Bowel Sounds, Soft, Non-Tender, No Organomegaly, No Distention, No Abnormal Bruit, No Mass, Pelvis Stable Back Exam: Normal Inspection, Full Range of Motion. No: CVA Tenderness (L), CVA Tenderness (R) Extremities: Normal Inspection, Normal Range of Motion, Non-Tender, No Pedal Edema, Normal Capillary Refill Neuro Extensive - Mental Status: Alert, Oriented x3, Normal Mood/Affect, Normal Cognition, Memory Intact Neuro Extensive - Motor, Sensory, Reflexes: CN II-XII Intact, Normal Gait ( unsteady, FWW), Normal Reflexes Psychiatric: Alert, Normal Affect, Normal Mood - Problem List (1) Generalized weakness SNOMED Code(s): 64337549 ICD Code: R53.1 - WEAKNESS Status: Acute Current Visit: Yes Problem List Initiated/Reviewed/Updated: Yes Assessment/Plan Comment:: Patient will be admitted [facility] for continued PT for strengthening. Continue home meds Rehab potential- fair Patient up with FWW and assist of 1
[2019-01-28] MEDS ORDERED: Enoxaparin 40 MG/0.4 ML Syringe SUBCUT SCH (18:00)
[2019-01-28] MEDS ORDERED: Albuterol 8 GM Inhaler INH PRN (18:01)
[2019-01-28] MEDS: Potassium Chloride 10 MEQ Tab.ER PO SCH (20:09)
[2019-01-29] MEDS: Aspirin 81 MG Tab.Chew PO SCH (07:52)
[2019-01-29] MEDS: Cholecalciferol (Vitamin D3) 25 MCG Tab PO SCH (07:53)
[2019-01-29] MEDS: Potassium Chloride 10 MEQ Tab.ER PO SCH ×2 (07:53→19:54)
[2019-01-29 08:00] LABS: CHLORIDE,CL 105 mEq/L (98-106); SODIUM,NA 140 mEq/L (136-145)
[2019-01-29] MEDS ORDERED: Non-Formulary Medication 1 Each (Ubidecarenone [Co Q-10] 100 MG) PO SCH (08:00)
[2019-01-29] MEDS ORDERED: Non-Formulary Medication 1 Each (Fish Oil/Omega-3 Fatty Acids [Fish Oil 1,000 Mg] 1,000 MG PO SCH (08:00)
[2019-01-29] MEDS ORDERED: Losartan 25 MG Tab PO SCH (08:00)
[2019-01-29] MEDS ORDERED: Docusate Sodium 100 MG Cap PO SCH (08:00)
[2019-01-29] MEDS: Losartan 25 MG Tab PO SCH (09:14)
[2019-01-29] MEDS: Bisoprolol 5 MG Tab PO SCH (10:59)
[2019-01-29] MEDS: Enoxaparin 40 MG/0.4 ML Syringe SUBCUT SCH (19:40)
[2019-01-29] MEDS: Polyethylene Glycol 3350 Powder 17 GM Packet PO PRN (19:43)
[2019-01-30] MEDS: Bisoprolol 5 MG Tab PO SCH (07:19)
[2019-01-30] MEDS: Losartan 25 MG Tab PO SCH (07:19)
[2019-01-30] MEDS: Cholecalciferol (Vitamin D3) 25 MCG Tab PO SCH (07:20)
[2019-01-30] MEDS: Aspirin 81 MG Tab.Chew PO SCH (07:20)
[2019-01-30] MEDS: Potassium Chloride 10 MEQ Tab.ER PO SCH (07:21)
[2019-01-30 08:06] LABS: CHLORIDE,CL 106 mEq/L (98-106); SODIUM,NA 142 mEq/L (136-145)
[2019-01-30] MEDS: Acetaminophen 325 MG Tab PO PRN ×2 (14:13→22:49)
[2019-01-30] MEDS: Enoxaparin 40 MG/0.4 ML Syringe SUBCUT SCH (20:06)
[2019-01-31] MEDS: Aspirin 81 MG Tab.Chew PO SCH (07:45)
[2019-01-31] MEDS: Losartan 25 MG Tab PO SCH (07:47)
[2019-01-31] MEDS: Cholecalciferol (Vitamin D3) 25 MCG Tab PO SCH (07:47)
[2019-01-31] MEDS: Bisoprolol 5 MG Tab PO SCH (07:48)
[2019-01-31] MEDS: Acetaminophen 325 MG Tab PO PRN ×2 (12:38→20:12)
[2019-01-31] MEDS: Enoxaparin 40 MG/0.4 ML Syringe SUBCUT SCH (20:11)
[2019-02-01] MEDS: Aspirin 81 MG Tab.Chew PO SCH (07:44)
[2019-02-01] MEDS: Bisoprolol 5 MG Tab PO SCH (07:44)
[2019-02-01] MEDS: Cholecalciferol (Vitamin D3) 25 MCG Tab PO SCH (07:44)
[2019-02-01] MEDS: Losartan 25 MG Tab PO SCH (07:45)
[2019-02-01] MEDS: Acetaminophen 325 MG Tab PO PRN ×2 (07:48→20:55)
[2019-02-01] MEDS: Enoxaparin 40 MG/0.4 ML Syringe SUBCUT SCH (20:55)
[2019-02-02] MEDS: Aspirin 81 MG Tab.Chew PO SCH (08:15)
[2019-02-02] MEDS: Bisoprolol 5 MG Tab PO SCH (08:15)
[2019-02-02] MEDS: Losartan 25 MG Tab PO SCH (08:19)
[2019-02-02] MEDS: Acetaminophen 325 MG Tab PO PRN ×2 (08:20→16:08)
[2019-02-02] MEDS: Cholecalciferol (Vitamin D3) 25 MCG Tab PO SCH (08:20)
[2019-02-02] MEDS: Enoxaparin 40 MG/0.4 ML Syringe SUBCUT SCH (21:33)
[2019-02-03 07:19] LABS: CHLORIDE,CL 107 mEq/L (98-106); SODIUM,NA 143 mEq/L (136-145)
[2019-02-03] MEDS: Acetaminophen 325 MG Tab PO PRN ×3 (07:43→17:18)
[2019-02-03] MEDS: Bisoprolol 5 MG Tab PO SCH (07:44)
[2019-02-03] MEDS: Aspirin 81 MG Tab.Chew PO SCH (07:44)
[2019-02-03] MEDS: Losartan 25 MG Tab PO SCH (07:44)
[2019-02-03] MEDS: Cholecalciferol (Vitamin D3) 25 MCG Tab PO SCH (07:45)
[2019-02-03] MEDS: Enoxaparin 40 MG/0.4 ML Syringe SUBCUT SCH (20:03)
[2019-02-03] MEDS: TYLENOL PM PO PRN (22:22)
[2019-02-04] MEDS: Cholecalciferol (Vitamin D3) 25 MCG Tab PO SCH (08:16)
[2019-02-04] MEDS: Losartan 25 MG Tab PO SCH (08:16)
[2019-02-04] MEDS: Bisoprolol 5 MG Tab PO SCH (08:16)
[2019-02-04] MEDS: Aspirin 81 MG Tab.Chew PO SCH (08:17)
[2019-02-04] MEDS: Acetaminophen 325 MG Tab PO PRN ×3 (08:51→17:47)
[2019-02-04] MEDS: Enoxaparin 40 MG/0.4 ML Syringe SUBCUT SCH (19:22)
[2019-02-04] MEDS: TYLENOL PM PO PRN (21:02)
[2019-02-05] MEDS: Bisoprolol 5 MG Tab PO SCH (08:10)
[2019-02-05] MEDS: Aspirin 81 MG Tab.Chew PO SCH (08:10)
[2019-02-05] MEDS: Cholecalciferol (Vitamin D3) 25 MCG Tab PO SCH (08:10)
[2019-02-05] MEDS: Losartan 25 MG Tab PO SCH (08:11)
[2019-02-05] MEDS: Acetaminophen 325 MG Tab PO PRN (08:11)
[2019-02-05] MEDS: Ibuprofen 200 MG Tab PO PRN ×2 (12:19→18:05)
[2019-02-05] MEDS: Enoxaparin 40 MG/0.4 ML Syringe SUBCUT SCH (20:08)
[2019-02-05] MEDS: TYLENOL PM PO PRN (21:26)
[2019-02-06] MEDS: Losartan 25 MG Tab PO SCH (07:48)
[2019-02-06] MEDS: Bisoprolol 5 MG Tab PO SCH (07:48)
[2019-02-06] MEDS: Ibuprofen 200 MG Tab PO PRN ×3 (07:48→20:18)
[2019-02-06] MEDS: Aspirin 81 MG Tab.Chew PO SCH (07:48)
[2019-02-06] MEDS: Cholecalciferol (Vitamin D3) 25 MCG Tab PO SCH (07:48)
[2019-02-06] MEDS: Enoxaparin 40 MG/0.4 ML Syringe SUBCUT SCH (20:17)
[2019-02-06] MEDS: TYLENOL PM PO PRN (23:18)
[2019-02-07] MEDS: Ibuprofen 200 MG Tab PO PRN ×3 (06:11→21:48)
[2019-02-07] MEDS: Cholecalciferol (Vitamin D3) 25 MCG Tab PO SCH (08:11)
[2019-02-07] MEDS: Aspirin 81 MG Tab.Chew PO SCH (08:11)
[2019-02-07] MEDS: Bisoprolol 5 MG Tab PO SCH (08:18)
[2019-02-07] MEDS: Losartan 25 MG Tab PO SCH (08:18)
[2019-02-07] MEDS: Acetaminophen 325 MG Tab PO PRN (18:12)
[2019-02-07] MEDS: Enoxaparin 40 MG/0.4 ML Syringe SUBCUT SCH (21:48)
[2019-02-08] MEDS: TYLENOL PM PO PRN (00:52)
[2019-02-08] MEDS: Bisoprolol 5 MG Tab PO SCH (07:34)
[2019-02-08] MEDS: Aspirin 81 MG Tab.Chew PO SCH (07:35)
[2019-02-08] MEDS: Cholecalciferol (Vitamin D3) 25 MCG Tab PO SCH (07:35)
[2019-02-08] MEDS: Losartan 25 MG Tab PO SCH (07:35)
[2019-02-08] MEDS: Ibuprofen 200 MG Tab PO PRN ×3 (07:35→22:03)
[2019-02-08] MEDS: Acetaminophen 325 MG Tab PO PRN (12:37)
[2019-02-08] MEDS: Enoxaparin 40 MG/0.4 ML Syringe SUBCUT SCH (19:48)
[2019-02-09] MEDS: TYLENOL PM PO PRN (00:15)
[2019-02-09] MEDS: Losartan 25 MG Tab PO SCH (08:02)
[2019-02-09] MEDS: Bisoprolol 5 MG Tab PO SCH (08:02)
[2019-02-09] MEDS: Aspirin 81 MG Tab.Chew PO SCH (08:03)
[2019-02-09] MEDS: Ibuprofen 200 MG Tab PO PRN ×3 (08:03→22:20)
[2019-02-09] MEDS: Cholecalciferol (Vitamin D3) 25 MCG Tab PO SCH (08:04)
[2019-02-09] MEDS: Acetaminophen 325 MG Tab PO PRN ×2 (12:54→20:03)
[2019-02-09] MEDS: Enoxaparin 40 MG/0.4 ML Syringe SUBCUT SCH (20:01)
[2019-02-10] MEDS: TYLENOL PM PO PRN (00:02)
[2019-02-10] MEDS: Aspirin 81 MG Tab.Chew PO SCH (07:48)
[2019-02-10] MEDS: Ibuprofen 200 MG Tab PO PRN ×2 (07:48→15:21)
[2019-02-10] MEDS: Losartan 25 MG Tab PO SCH (07:51)
[2019-02-10] MEDS: Cholecalciferol (Vitamin D3) 25 MCG Tab PO SCH (08:17)
[2019-02-10] MEDS: Bisoprolol 5 MG Tab PO SCH (08:17)
[2019-02-10 09:23] LABS: CHLORIDE,CL 105 mEq/L (98-106); SODIUM,NA 141 mEq/L (136-145)
[2019-02-10] MEDS: traMADol 50 MG Tab PO PRN ×2 (11:56→19:43)
[2019-02-10] MEDS: Enoxaparin 40 MG/0.4 ML Syringe SUBCUT SCH (19:41)
[2019-02-10] MEDS: Ondansetron 4 MG Tab.DIS PO PRN (21:45)
[2019-02-11] MEDS: Ondansetron 4 MG Tab.DIS PO PRN ×3 (04:49→15:41)
[2019-02-11] MEDS: Aspirin 81 MG Tab.Chew PO SCH (07:55)
[2019-02-11] MEDS: Losartan 25 MG Tab PO SCH (07:55)
[2019-02-11] MEDS: Bisoprolol 5 MG Tab PO SCH (07:56)
[2019-02-11] MEDS: Cholecalciferol (Vitamin D3) 25 MCG Tab PO SCH (07:58)
[2019-02-11] MEDS: Acetaminophen 325 MG Tab PO PRN (08:00)
[2019-02-11] MEDS: Ibuprofen 200 MG Tab PO PRN ×2 (14:32→20:46)
[2019-02-11] MEDS: Docusate Sodium 100 MG Cap PO PRN (14:41)
[2019-02-11] MEDS: Enoxaparin 40 MG/0.4 ML Syringe SUBCUT SCH (20:46)
--- NOTE | 2019-02-11 21:18 | PCM.PN ---
- General Info Date of Service: 02/11/19 Admission Dx/Problem (Free Text): Weakness Functional Status: Reports: Tolerating Diet, Ambulating. Denies: Pain Controlled - Review of Systems General: Reports: Weakness, Fatigue, Malaise HEENT: Reports: No Symptoms Pulmonary: Denies: Shortness of Breath, Cough Cardiovascular: Denies: Chest Pain, Edema, Lightheadedness Gastrointestinal: Denies: Abdominal Pain, Nausea, Vomiting Genitourinary: Reports: No Symptoms Musculoskeletal: Reports: Back Pain Skin: Reports: No Symptoms Neurological: Reports: Weakness - Patient Data Vitals - Most Recent: Last Vital Signs Temp 98.6 F 02/11/19 08:00 Pulse 84 02/11/19 08:00 Resp 20 02/11/19 08:00 BP 147/68 H 02/11/19 08:00 Pulse Ox 93 L 02/11/19 08:00 Weight - Most Recent: 137 lb 14.4 oz Med Orders - Current: Current Medications Acetaminophen (Tylenol) 650 mg PO Q4H PRN PRN Reason: Pain (Mild 1-3)/fever Last Admin: 02/11/19 08:00 Dose: 650 mg Albuterol (Ventolin Hfa) 0 gm INH Q4H PRN PRN Reason: Shortness of Breath Aspirin (Aspirin) 81 mg PO DAILY [facility] Last Admin: 02/11/19 07:55 Dose: 81 mg Bisoprolol Fumarate (Zebeta) 10 mg PO DAILY [facility] Last Admin: 02/11/19 07:56 Dose: 10 mg Cholecalciferol (Vitamin D3) 125 mcg PO DAILY [facility] Last Admin: 02/11/19 07:58 Dose: 125 mcg Docusate Sodium (Colace) 100 mg PO BID PRN PRN Reason: Constipation Last Admin: 02/11/19 14:41 Dose: 100 mg Enoxaparin Sodium (Lovenox) 40 mg SUBCUT Q24H [facility] Last Admin: 02/11/19 20:46 Dose: 40 mg Ibuprofen (Motrin) 400 mg PO Q6H PRN PRN Reason: Pain (mild 1-3) Last Admin: 02/11/19 20:46 Dose: 400 mg Losartan Potassium (Cozaar) 25 mg PO DAILY [facility] Last Admin: 02/11/19 07:55 Dose: 25 mg Tylenol Pm Pt Own () 1 - 2 each PO QPM PRN PRN Reason: Insomnia Last Admin: 02/10/19 00:02 Dose: 2 each Ondansetron HCl (Zofran Odt) 4 mg PO Q4H PRN PRN Reason: Nausea/Vomiting Last Admin: 02/11/19 15:41 Dose: 4 mg Polyethylene Glycol (Miralax) 17 gm PO DAILY PRN PRN Reason: Constipation Last Admin: 01/29/19 19:43 Dose: 17 gm Potassium Chloride (Klor-Con 10) 20 meq PO BID [facility] Last Admin: 01/30/19 07:21 Dose: Not Given Senna/Docusate Sodium (Senna Plus) 1 tab PO DAILY [facility] Last Admin: 02/11/19 07:56 Dose: 1 tab Temazepam (Restoril) 15 mg PO BEDTIME PRN PRN Reason: Sleep Tramadol HCl (Ultram) 50 mg PO Q6H PRN PRN Reason: Pain Last Admin: 02/10/19 19:43 Dose: 50 mg Discontinued Medications Docusate Sodium (Colace) 100 mg PO DAILY [facility] Enoxaparin Sodium (Lovenox) 40 mg SUBCUT Q24H [facility] Last Admin: 01/28/19 20:08 Dose: 40 mg Losartan Potassium (Cozaar) 50 mg PO DAILY [facility] Last Admin: 01/29/19 07:53 Dose: 50 mg Non-Formulary Medication (Fish Oil/[place]-3 Fatty Acids [Fish Oil 1,000 Mg]) 1, 000 mg PO DAILY [facility] Non-Formulary Medication (Ubidecarenone [Co Q-10]) 100 mg PO DAILY [facility] - Exam General: Alert, Oriented HEENT: Mucous Membr. Moist/Verdi Neck: Supple Lungs: Clear to Auscultation, Normal Respiratory Effort Cardiovascular: Regular Rate, Regular Rhythm GI/Abdominal Exam: Normal Bowel Sounds, Soft, Non-Tender Extremities: Normal Inspection, No Pedal Edema Skin: Warm, Dry - Problem List & Annotations (1) Back pain SNOMED Code(s): 132577926 Code(s): M54.9 - DORSALGIA, UNSPECIFIED Status: Acute Priority: High Current Visit: Yes Qualifiers: Back pain location: thoracic back pain Chronicity: acute Back pain laterality: left Qualified Code(s): M54.6 - Pain in thoracic spine (2) Generalized weakness SNOMED Code(s): 72507157 Code(s): R53.1 - WEAKNESS Status: Acute Priority: High Current Visit: Yes - Problem List Review Problem List Initiated/Reviewed/Updated: Yes - My Orders Last 24 Hours: My Active Orders 02/14/19 12:00 Thoracic Spine Comp w Cont [MR] Routine - Assessment Assessment:: Weakness Thoracic Back Pain - Plan Plan:: Patient will be admitted to [facility] for continued PT for strengthening. Continue home meds Rehab potential- fair Patient up with [facility] and assist of 1 02-11-2019 Patient seen for 14 days recert. She was admitted for weakness following sepsis , parotitis and urinary stent placement and removal. Patient had been in swing bed prior after hospitalization in [place] for sepsis. Had also been dealing with parotitis. Had urinary stent removed and upon returning home, presented to ER unresponsive. 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 Was again hospitalized at [place] and now returned for physical therapy for ongoing weakness. In respect to her admission status, patient has improved for leg and arm strength. Continues to be hindered by thoracic back pain. Xrays were done with notable degenerative changes. As she continued to have back pain, MRI was done. MRI report notes an area of edema near T10, question inflammation versus discitis. Labs were done, WBC normal at 4.8, CRP 1.2. Sed rate elevated at 54. Contacted neurosurgeon and spoke with Dr. Ornelas. Due to patient being afebrile, labs stable, suggested further MRI with contrast to better identify if this was infection. This will be accomplished this Sunday. Will repeat labs on .
[2019-02-12] MEDS: TYLENOL PM PO PRN ×2 (00:09→23:53)
[2019-02-12] MEDS: Aspirin 81 MG Tab.Chew PO SCH (07:48)
[2019-02-12] MEDS: Losartan 25 MG Tab PO SCH (07:49)
[2019-02-12] MEDS: Cholecalciferol (Vitamin D3) 25 MCG Tab PO SCH (07:49)
[2019-02-12] MEDS: Bisoprolol 5 MG Tab PO SCH (07:50)
[2019-02-12] MEDS: Docusate Sodium 100 MG Cap PO PRN (07:52)
[2019-02-12] MEDS: Acetaminophen 325 MG Tab PO PRN (07:53)
[2019-02-12] MEDS: Ibuprofen 200 MG Tab PO PRN ×2 (12:41→20:02)
[2019-02-12] MEDS: Polyethylene Glycol 3350 Powder 17 GM Packet PO PRN (17:31)
[2019-02-12] MEDS: Enoxaparin 40 MG/0.4 ML Syringe SUBCUT SCH (20:03)
[2019-02-13] MEDS: Bisoprolol 5 MG Tab PO SCH (07:32)
[2019-02-13] MEDS: Losartan 25 MG Tab PO SCH (07:32)
[2019-02-13] MEDS: Cholecalciferol (Vitamin D3) 25 MCG Tab PO SCH (07:32)
[2019-02-13] MEDS: Aspirin 81 MG Tab.Chew PO SCH (07:32)
[2019-02-13] MEDS: Docusate Sodium 100 MG Cap PO PRN (07:34)
[2019-02-13] MEDS: Polyethylene Glycol 3350 Powder 17 GM Packet PO PRN (07:35)
[2019-02-13] MEDS: Ibuprofen 200 MG Tab PO PRN ×2 (07:39→19:57)
[2019-02-13] MEDS: Ondansetron 4 MG Tab.DIS PO PRN ×2 (11:22→19:56)
[2019-02-13] MEDS: Acetaminophen 325 MG Tab PO PRN ×2 (11:26→18:46)
[2019-02-13] MEDS ORDERED: Bisacodyl 10 MG Supp RECTAL ONE (14:57)
[2019-02-13] MEDS: Enoxaparin 40 MG/0.4 ML Syringe SUBCUT SCH (19:57)
[2019-02-14] MEDS: Ibuprofen 200 MG Tab PO PRN (07:38)
[2019-02-14] MEDS: Bisoprolol 5 MG Tab PO SCH (07:40)
[2019-02-14] MEDS: Cholecalciferol (Vitamin D3) 25 MCG Tab PO SCH (07:41)
[2019-02-14] MEDS: Losartan 25 MG Tab PO SCH (07:42)
[2019-02-14] MEDS: Aspirin 81 MG Tab.Chew PO SCH (07:42)
[2019-02-14] MEDS: Acetaminophen 325 MG Tab PO PRN (10:45)
--- NOTE | 2019-02-17 08:33 | DISCH ---
DISCHARGE DIAGNOSIS: 1. GENERAL WEAKNESS. 2. CHRONIC BACK PAIN. HISTORY OF PRESENT ILLNESS: Lori is an 78-year-old female who was initially directly admitted on 01/28 for generalized weakness and fatigue. She had been seen in the emergency room on 01/24 when they found her to be unresponsive, and she was transferred to [facility] for encephalopathy. She was discharged, when she came here for direct admission for generalized weakness. Physical Therapy has been working with her in regard to strengthening, which she has seen some improvement. She has been having some back pain, which she does have chronic in nature. However, an MRI was ordered of the thoracic spine. It did show multilevel disk space narrowing. However, it did show some abnormal marrow edema changes at the inferior endplate of T9 and the superior endplate of T10. The question was whether it was secondary to degenerative in nature. However, they did want to rule out any signs of diskitis, osteomyelitis. Inflammatory markers have been quite stable. CRP has been in the low 1s. I did recommend a repeat MRI with MRI to be done today at noon. She has been gaining strength during her stay. She admits she has no concerns presently except for back pain. Physical Therapy did have back brace for the patient to go home with. Most recent vital signs done on 02/13 did show CBC to be stable; hemoglobin was at 10, which was stable. Last basic metabolic panel was completed on the , unremarkable. CRP was 1.4 on the . ASSESSMENT: 1. Generalized weakness. 2. Midback pain. PLAN: We will look at discharging this afternoon after obtaining an MRI at noon. We will have home health referral to work with continued strengthening. Back brace to be placed prior to discharge. I did discuss with her if there are any further concerns, which he did not have any concerns. We do recommend that she have follow up with her primary provider, Daily Farmer, in a week. If any concerns sooner, she is to definitely let us know. DIANE/WAYNE /[id number]
== END 2019-02-14 13:08 | disposition home or self-care (01) | DRG 948 ==
LOC: CC.MS 01-28 14:00 → UNDOADMIN 01-28 14:00 → CC.MS 01-28 17:58
PROVIDERS: ADMIT Family Medicine; ATTEND Family Medicine
DX: R53.1 Weakness (principal); G89.29 Other chronic pain; M54.9 Dorsalgia, unspecified; H35.30 Unspecified macular degeneration; I10 Essential (primary) hypertension; K59.00 Constipation, unspecified; K21.9 Gastro-esophageal reflux disease without esophagitis; K44.9 Diaphragmatic hernia without obstruction or gangrene; M19.90 Unspecified osteoarthritis, unspecified site; Z88.0 Allergy status to penicillin; Z88.1 Allergy status to other antibiotic agents; Z88.4 Allergy status to anesthetic agent; Z88.5 Allergy status to narcotic agent; Z79.82 Long term (current) use of aspirin; Z79.899 Other long term (current) drug therapy
CPT/HCPCS: 36415; 72070; 72100; 72146; 72147; 80048; 81001; 85025; 85651; 86140; 97110-GP; 97161-GP; A9270-GY; A9579; J1650

== ENCOUNTER 2019-01-24 23:08 | Emergency (ER) | payer MEDICARE, BC ==
--- NOTE | 2019-01-24 23:40 | EDM.PDOC ---
ED HPI GENERAL MEDICAL PROBLEM - General Chief Complaint: General Stated Complaint: cva Time Seen by Provider: 01/24/19 23:08 Source of Information: Reports: EMS, Family History Limitations: Reports: Altered Mental Status - History of Present Illness INITIAL COMMENTS - FREE TEXT/NARRATIVE: The patient is an 78 year old female that presents to the ER. Patient arrives via EMS. Family arrives at time of patient arrival. The family reports that the patient is normally alert, oriented, ambulatory without any difficulty. They report the patient today went and had kidney stent removed in [place]. No complications with this and then returned home today without issue. They report the patient today at exactly 8pm was complaining of abdominal pain then went to bed. They reports at about 11pm going and checking on her and found her non responding. They report the patient is nonverbal and does not get up from the bed. They report the patient was admitted recently to [place] for urosepsis with also fungal infection. They report the patient was also swing patient in [place] and discharged home on Sunday without incident. They report that 8pm tonight is last known time the patient was herself mentally. Onset Date: 01/24/19 Onset Time: 20:00 Severity: Severe Improves with: Reports: None Worsens with: Reports: None Associated Symptoms: Reports: Other (nonverbal. ) - Related Data Allergies Allergy/AdvReac Type Severity Reaction Status Date / Time ciprofloxacin [From Cipro] Allergy Nausea and Verified 01/24/19 23:33 Vomiting codeine Allergy Nausea and Verified 01/24/19 23:33 Vomiting Penicillins Allergy Cannot Verified 01/24/19 23:33 Remember procaine [From Novocain] Allergy Weakness Verified 01/24/19 23:33 Home Meds: Home Meds Bisoprolol Fumarate/HCTZ [Ziac 5-6.25 MG] 1 tab PO BEDTIME 02/24/18 [History] Cholecalciferol (Vitamin D3) [Vitamin D3] 5,000 unit PO BEDTIME 02/24/18 [ History] Docusate Sodium [Colace] 100 mg PO DAILY 02/24/18 [History] Ubidecarenone [Co Q-10] 100 mg PO DAILY 12/11/18 [History] Albuterol [Ventolin HFA] 1 inh INH Q4H PRN 12/18/18 [History] Fish Oil/[place]-3 Fatty Acids [Fish Oil 1,000 MG] 1,000 mg PO DAILY 12/18/18 [ History] Polyethylene Glycol 3350 [Miralax] 17 gm PO DAILY PRN 12/18/18 [History] Oxybutynin 5 mg PO BID #60 tablet 12/27/18 [Rx] Potassium Chloride 20 meq PO BID 01/07/19 [History] Aspirin [Tina Chewable] 81 mg PO DAILY 01/25/19 [History] Losartan [Cozaar] 50 mg PO DAILY 01/25/19 [History] Sennosides/Docusate Sodium [Sennosides-Docusate Sodium] 1 tab PO DAILY 01/25/19 [History] Past Medical History HEENT History: Reports: Cataract, Macular Degeneration Cardiovascular History: Reports: High Cholesterol, Hypertension, Other (See Below) Other Cardiovascular History: leaky valve Gastrointestinal History: Reports: Chronic Constipation, Diverticulosis, GERD, Hemorrhoids, Hiatal Hernia Genitourinary History: Reports: Hydronephrosis, Renal Calculus, Urinary Incontinence 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: Musculoskeletal History: Reports: Arthritis, Back Pain, Chronic Neurological History: Reports: Migraines - Past Surgical History HEENT Surgical History: Reports: Tonsillectomy GI Surgical History: Reports: Colonoscopy, EGD, Other (See Below) Other GI Surgeries/Procedures: rectal prolapse surgery Female Surgical History: Reports: Cystoscopy, Lithotripsy/ESWL, Ureteral Stent Neurological Surgical History: Reports: None Musculoskeletal Surgical History: Reports: None Social & Family History - Family History Family Medical History: Noncontributory - Caffeine Use Caffeine Use: Reports: Coffee - Living Situation & Occupation Living situation: Reports: , with Spouse Occupation: Retired ED ROS GENERAL - Review of Systems Review Of Systems: Unable To Obtain (from the patient, due to altered mental status. Obtained from family.) Constitutional: Reports: Weakness HEENT: Reports: No Symptoms Respiratory: Reports: No Symptoms Cardiovascular: Reports: No Symptoms Endocrine: Reports: No Symptoms GI/Abdominal: Reports: Abdominal Pain. Denies: Vomiting : Reports: No Symptoms Musculoskeletal: Reports: No Symptoms Skin: Reports: No Symptoms Neurological: Reports: Confusion, Trouble Speaking, Weakness, Other (PLEASE SEE ATTACHED STROKE SCORE. ) Psychiatric: Reports: No Symptoms Hematologic/Lymphatic: Reports: No Symptoms Immunologic: Reports: No Symptoms ED EXAM, GENERAL - Physical Exam Exam: See Below Exam Limited By: Altered Mental Status General Appearance: Other (Eye opening) Eye Exam: Bilateral Eye: Abnormal EOM (Does not follow command), Normal Inspection, PERRL Ears: Normal External Exam, Normal Canal, Hearing Grossly Normal, Normal TMs Ear Exam: Bilateral Ear: Auricle Normal, Canal Normal, TM normal Nose: Normal Inspection, Normal Mucosa, No Blood Throat/Mouth: Normal Inspection, Normal Lips, Normal Teeth, Normal Gums, Normal Oropharynx, No Airway Compromise (Patient airway is patent and not compromised. ) Head: Atraumatic, Normocephalic Neck: Normal Inspection, Supple, Non-Tender, Full Range of Motion Respiratory/Chest: No Respiratory Distress, Lungs Clear, Normal Breath Sounds, No Accessory Muscle Use, Chest Non-Tender Cardiovascular: Normal Peripheral Pulses, Regular Rate, Rhythm, No Edema, No JVD , No Murmur, No Rub Peripheral Pulses: 2+: Carotid (L), Carotid (R), Radial (L), Radial (R), Posterior Tibial (L), Posterior Tibial (R), Dorsalis Pedis (L), Dorsalis Pedis ( R) GI/Abdominal: Normal Bowel Sounds, Soft, Non-Tender (no grimace with palpation) , No Organomegaly, No Distention, No Abnormal Bruit, No Mass, Pelvis Stable (Female) Exam: Normal External Exam (while RN inserting catheter.), Other ( patient NOT incontinent of urine) Rectal (Female) Exam: Deferred, Other (Not incontinent of bowel) Back Exam: Normal Inspection Extremities: Normal Inspection, Normal Range of Motion, Non-Tender, No Pedal Edema, Normal Capillary Refill Neurological: Unresponsive, Sensory/Motor Deficit, Other (Patient does eye open. She will slowly turn head to voice of . She will open mouth when asked to do so, slowly. 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 ) Skin Exam: Warm, Dry, Intact, Normal Color, No Rash, Erythema (mild erythema to the anterior neck and chest. reports from being in the sun today, is sensitive to sun per .) Lymphatic: No Adenopathy EKG INTERPRETATION EKG Date: 07/12/19 Time: 23:47 Rate (Beats/Min): 97 QRS: RBBB Comparison: Change From Previous EKG (Latest was 02/2018 and NSR.) Course - Vital Signs Last Recorded V/S: Last Vital Signs Temp 99.1 F 01/24/19 23:45 Pulse 101 H 01/25/19 00:21 Resp 18 01/25/19 00:21 BP 173/96 H 01/25/19 00:21 Pulse Ox 98 01/25/19 00:21 - Orders/Labs/Meds Orders: Active Orders 24 hr Category Date Time Status Chest 1V Frontal [CR] Stat Exams 01/24/19 23:31 Taken Head wo Cont [CT] Stat Exams 01/24/19 23:30 Taken CULTURE BLOOD [BC] Stat Lab 01/24/19 23:47 Received CULTURE BLOOD [BC] Stat Lab 01/24/19 23:53 Received Blood Culture x2 Reflex Set [OM.PC] Stat Oth 01/24/19 23:31 Ordered Labs: Laboratory Tests 01/24/19 01/24/19 01/24/19 Range/Units 23:26 23:26 23:26 WBC 9.5 (5.0-10.0) 10^3/uL RBC 4.05 (4.00-5.50) 10^6/uL Hgb 11.9 L (12.0-16.0) g/dL Hct 36.5 L (37.0-47.0) % MCV 90.1 (82.0-94.0) fL MCH 29.4 (27.0-32.0) pg MCHC 32.6 L (33.0-38.0) g/dL RDW Coeff of Vangie 14.0 (11.0-15.0) % Plt Count 311 (150-400) 10^3/uL Neut % (Auto) 47.9 (35-85) % Lymph % (Auto) 43.4 (10-55) % Sharkey % (Auto) 7.4 (0-16) % Eos % (Auto) 1.0 (0-5) % Baso % (Auto) 0.3 (0-3) % Neut # (Auto) 4.54 (1.80-7.00) 10^3/uL Lymph # (Auto) 4.11 (1.00-4.80) 10^3/uL Sharkey # (Auto) 0.70 (0.00-0.80) 10^3/uL Eos # (Auto) 0.09 (0.00-0.45) 10^3/uL Baso # (Auto) 0.03 10^3/uL PT 10.0 (9.7-12.3) SEC INR 0.97 (0.92-1.18) APTT 26.3 (23.2-32.3) SEC Sodium (136-145) mEq/L Potassium (3.5-5.0) mEq/L Chloride (98-106) mEq/L Carbon Dioxide (21-32) mmol/L BUN (7-18) mg/dL Creatinine (0.6-1.0) mg/dL Est Cr Clr Drug Dosing Estimated GFR (MDRD) (>=60) mL/min Glucose (75-99) mg/dL Lactic Acid (0.4-2.0) mmol/L Calcium (8.4-10.1) mg/dL Total Bilirubin (0.0-1.0) mg/dL AST (15-37) U/L ALT (12-78) U/L Alkaline Phosphatase (46-116) U/L Lactate Dehydrogenase 157 (100-190) U/L Creatine Kinase 12 L (21-215) U/L Troponin I < 0.017 (0.00-0.06) ng/mL Total Protein (6.4-8.2) g/dL Albumin (3.4-5.0) g/dL Urine Color (YELLOW) Urine Appearance (CLEAR) Urine pH (4.5-8.0) Ur Specific [place] (1.003-1.020) Urine Protein (NEGATIVE) mg/dL Urine Glucose (UA) (NEGATIVE) mg/dL Urine Ketones (NEGATIVE) mg/dL Urine Occult Blood (NEGATIVE) Urine Nitrite (NEGATIVE) Urine Bilirubin (NEGATIVE) Urine Urobilinogen (0.2-1.0) EU/dL Ur Leukocyte Esterase (NEGATIVE) 01/24/19 01/24/19 01/24/19 Range/Units 23:26 23:30 23:31 WBC (5.0-10.0) 10^3/uL RBC (4.00-5.50) 10^6/uL Hgb (12.0-16.0) g/dL Hct (37.0-47.0) % MCV (82.0-94.0) fL MCH (27.0-32.0) pg MCHC (33.0-38.0) g/dL RDW Coeff of Vangie (11.0-15.0) % Plt Count (150-400) 10^3/uL Neut % (Auto) (35-85) % Lymph % (Auto) (10-55) % Sharkey % (Auto) (0-16) % Eos % (Auto) (0-5) % Baso % (Auto) (0-3) % Neut # (Auto) (1.80-7.00) 10^3/uL Lymph # (Auto) (1.00-4.80) 10^3/uL Sharkey # (Auto) (0.00-0.80) 10^3/uL Eos # (Auto) (0.00-0.45) 10^3/uL Baso # (Auto) 10^3/uL PT (9.7-12.3) SEC INR (0.92-1.18) APTT (23.2-32.3) SEC Sodium 135 L (136-145) mEq/L Potassium 4.3 (3.5-5.0) mEq/L Chloride 99 (98-106) mEq/L Carbon Dioxide 28 (21-32) mmol/L BUN 22 H D (7-18) mg/dL Creatinine 0.9 (0.6-1.0) mg/dL Est Cr Clr Drug Dosing TNP Estimated GFR (MDRD) > 60 (>=60) mL/min Glucose 136 H D (75-99) mg/dL Lactic Acid 0.5 (0.4-2.0) mmol/L Calcium 10.2 H (8.4-10.1) mg/dL Total Bilirubin 0.3 (0.0-1.0) mg/dL AST 19 (15-37) U/L ALT 24 (12-78) U/L Alkaline Phosphatase 123 H (46-116) U/L Lactate Dehydrogenase (100-190) U/L Creatine Kinase (21-215) U/L Troponin I (0.00-0.06) ng/mL Total Protein 7.7 (6.4-8.2) g/dL Albumin 3.6 (3.4-5.0) g/dL Urine Color Yellow (YELLOW) Urine Appearance Clear (CLEAR) Urine pH 5.5 (4.5-8.0) Ur Specific [place] 1.010 (1.003-1.020) Urine Protein Negative (NEGATIVE) mg/dL Urine Glucose (UA) Negative (NEGATIVE) mg/dL Urine Ketones Negative (NEGATIVE) mg/dL Urine Occult Blood Negative (NEGATIVE) Urine Nitrite Negative (NEGATIVE) Urine Bilirubin Negative (NEGATIVE) Urine Urobilinogen 0.2 (0.2-1.0) EU/dL Ur Leukocyte Esterase Negative (NEGATIVE) - Radiology Interpretation Free Text/Narrative:: CXR: No infiltrates Head CT: discussed with radiologist no acute findings. CT Results Date: 01/24/19 CT Results Time: 00:20 - Re-Assessments/Exams Free Text/Narrative Re-Assessment/Exam: 01/25/19 12:25am I spoke with [facility] Neurologist Dr. Joseph. I have explained to him the patient symptoms and presentation during initial presentation. The stroke score that was calculated was 30. High score due to no purpose response, no questions correct because nonverbal, nonverbal commands, no side gazing, no movement of bilateral upper or lower extremities, patient dysarthria is nonverbal gave 2 more points, and neglect of 2 due to not acknowledging site to either side or sensation 2 more points. However, after discussing with the stroke neurologist Dr. Joseph, he believed my score was to high, the patient would be intubated at this high score. I reevaluated my score on responses for being nonverbal on dysarthria and neglect. My reassessed score is 24. The stroke score is still high. Dr. Joseph instructed me that I should give TPA and have 5 minutes to give it, cut off 12:30am. I hung up the phone and immediately consulted with Sarbjit Bae via teleconference. 01/25/19 12:30am I spoke to Dr. Mckeon with [facility]. On camera and now the patient is significantly improved from latest neuro exam. Her legs are both withdrawn up and she can move them both. She can move both fingers and hands, but can not lift arms. She does smile, eye follow, open mouth. Still nonverbal. She shows significant improvement from initial presentation. Dr. Mckeon reports that due to patient improvement, patient age, risks with TPA, after a 4 hour window, and he also reports a High stroke score, he would not advise to give TPA. We discussed all results and patient status, recommends transfer and neuro consult. 01/25/19 1245am I called [facility], they then called me back with Dr. Joseph neuro. I explained to him consult with E-Whitman via camera and not to give TPA. Also explained the patient is much improving. New stroke score is 15 after I evaluated again after E-Whitman. As I am on the phone, the RN now reports the patient is verbal and saying, yes, no. She is nodding her head to questions, moving legs, and arms. I explained this to Dr. Joseph on the phone, who reports the patient sounds like not CVA, but possible seizure. He reports to have the patient transferred to [facility] ER, will have an MRI and if negative will have seizure work up or workup for other possible causes. I will transfer the patient via ALS transfer ambulance. Departure - Departure Time of Disposition: 01:42 Disposition: DC/Tfer to Acute Hospital 02 Condition: Serious Clinical Impression: Altered mental status Qualifiers: Altered mental status type: unspecified Qualified Code(s): R41.82 - Altered mental status, unspecified - Discharge Information *PRESCRIPTION DRUG MONITORING PROGRAM REVIEWED*: Not Applicable *COPY OF PRESCRIPTION DRUG MONITORING REPORT IN PATIENT MARIFER: Not Applicable Referrals: Susan Dietz MD [Primary Care Provider] - Forms: ED Department Discharge - My Orders Last 24 Hours: My Active Orders 01/24/19 23:30 Head wo Cont [CT] Stat 01/24/19 23:31 Chest 1V Frontal [CR] Stat Blood Culture x2 Reflex Set [OM.PC] Stat 01/24/19 23:47 CULTURE BLOOD [BC] Stat 01/24/19 23:53 CULTURE BLOOD [BC] Stat - Assessment/Plan Last 24 Hours: My Active Orders 01/24/19 23:30 Head wo Cont [CT] Stat 01/24/19 23:31 Chest 1V Frontal [CR] Stat Blood Culture x2 Reflex Set [OM.PC] Stat 01/24/19 23:47 CULTURE BLOOD [BC] Stat 01/24/19 23:53 CULTURE BLOOD [BC] Stat Plan: PLEASE SEE RN NOTE FOR PFSH. The patient is being transferred to [facility]. The risks of transfer is mvc, , stroke, seizure, worsening of condition. The benefits of transfer are higher level of care, MRI capability, EEG capability if needed, neuro speciality. The risks of staying in [place] are worsening of condition, return of symptoms, , stroke, seizure. The benefits of staying in [place] is close to home.
[2019-01-24 23:55] LABS: CHLORIDE,CL 99 mEq/L (98-106)
[2019-01-25 00:04] LABS: SODIUM,NA 135 mEq/L (136-145)
== END 2019-01-25 02:05 ==
LOC: CC.ED 23:08
DX: R41.82 Altered mental status, unspecified (principal); E78.00 Pure hypercholesterolemia, unspecified; I10 Essential (primary) hypertension; K21.9 Gastro-esophageal reflux disease without esophagitis; Z88.1 Allergy status to other antibiotic agents; Z88.5 Allergy status to narcotic agent; Z88.8 Allergy status to other drugs, medicaments and biological substances; Z79.899 Other long term (current) drug therapy
CPT/HCPCS: 36415; 51702; 70450; 71045; 80053; 81003; 82550; 83605; 83615; 84484; 85025; 85610; 85730; 87040; 93005; 93010; 99285; 99285-25

== ENCOUNTER 2022-06-06 11:25 | Emergency (ER) | payer MEDICARE, BC ==
[2022-06-06] MEDS ORDERED: Sodium Chloride 0.9% 1,000 ML IV ONE (11:49)
[2022-06-06 12:17] LABS: CHLORIDE,CL 99 mEq/L (98-106); ESTIMATED GFR 86 mL/min (>=60); SODIUM,NA 137 mEq/L (136-145)
[2022-06-06 12:41] LABS: CORONAVIRUS COVID-19 NAA POSITIVE (NEGATIVE)
== END 2022-06-06 13:02 | disposition home or self-care (01) ==
LOC: CC.ED 11:25
DX: U07.1 COVID-19 (principal); E86.0 Dehydration; I10 Essential (primary) hypertension; M19.90 Unspecified osteoarthritis, unspecified site; Z88.1 Allergy status to other antibiotic agents; Z88.5 Allergy status to narcotic agent; Z88.0 Allergy status to penicillin; Z88.4 Allergy status to anesthetic agent; Z79.899 Other long term (current) drug therapy
CPT/HCPCS: 0240U; 36415; 71046; 80053; 81001; 83605; 85025; 86140; 96360; 99284; 99284-25; J7030